=== PATIENT | male | born 1950 | race Caucasian/White ===

== ENCOUNTER 2017-12-02 14:50 | Inpatient (IN) | payer OTHER ==
--- NOTE | 2017-12-02 14:56 | PDOC ---
History of Present Illness - General Chief Complaint: Diarrhea Stated Complaint: DIARRHEA Time Seen by Provider: 12/02/17 14:52 - History of Present Illness Initial Comments: 12/02/17 15:06 Mr. Norman is a 67 yo male w/ pmh of multiple myocardial infarctions ( currently on AC), Rheumatoid arthritis, Radiation proctitis, HTN, HLD, IBS, who presents for evaluation of 6 week history of constipation alternating with diarrhea, epigastric pain, nausea, and gas/abdominal bloating. He reports he has been evaluated by GI (Dr. Jalen Powers) and told he has IBS and proscribed oral fiber for treatment. He presents today as he had a particularly bad episode consisting of these symptoms starting at 2am this morning. The patient denies chest pain, shortness of breath, headache and dizziness. Denies fever, chills, nausea, vomit, diarrhea and constipation. Denies dysuria, frequency, urgency and hematuria. Allergies: Penicillin Past History - Past Medical History Allergies/Adverse Reactions: Allergies Allergy/AdvReac Type Severity Reaction Status Date / Time Penicillins Allergy Intermediate Rash Verified 12/02/17 15:13 Home Medications: Ambulatory Orders No Home Medications 0 dose .ROUTE UTDICT 05/06/13 HTN: Yes - Suicide/Smoking/Psychosocial Hx Smoking Status: Yes Smoking History: Current every day smoker Have you smoked in the past 12 months: Yes Number of Cigarettes Smoked Daily: 20 'Breaking Loose' booklet given: 05/07/13 Hx Alcohol Use: Yes Drug/Substance Use Hx: No Substance Use Type: None Hx Substance Use Treatment: No Review of Systems - Review of Systems Comments:: 12/02/17 15:12 GENERAL/CONSTITUTIONAL: No fever or chills. No weakness. HEAD, EYES, EARS, NOSE AND THROAT: No change in vision. No ear pain or discharge. No sore throat. CARDIOVASCULAR: No chest pain or shortness of breath RESPIRATORY: No cough, wheezing, or hemoptysis. GASTROINTESTINAL: +Nausea with intermittent diarrhea and constipation. No vomiting. GENITOURINARY: No dysuria, frequency, or change in urination. MUSCULOSKELETAL: No joint or muscle swelling or pain. No neck or back pain. SKIN: No rash NEUROLOGIC: No headache, vertigo, loss of consciousness, or change in strength/ sensation. ENDOCRINE: No increased thirst. No abnormal weight change HEMATOLOGIC/LYMPHATIC: No anemia, easy bleeding, or history of blood clots. ALLERGIC/IMMUNOLOGIC: No hives or skin allergy. *Physical Exam - Physical Exam Comments: 12/02/17 15:12 GENERAL: Awake, alert, and fully oriented, in no acute distress HEAD: No signs of trauma, normocephalic, atraumatic EYES: PERRLA, EOMI, sclera anicteric, conjunctiva clear ENT: Auricles normal inspection, hearing grossly normal, nares patent, oropharynx clear without exudates. Moist mucosa NECK: Normal ROM, supple, no lymphadenopathy, JVD, or masses LUNGS: No distress, speaks full sentences, clear to auscultation bilaterally HEART: Regular rate and rhythm, normal S1 and S2, no murmurs, rubs or gallops, peripheral pulses normal and equal bilaterally. ABDOMEN: Soft, nontender, normoactive bowel sounds. No guarding, no rebound. No masses EXTREMITIES: Normal inspection, Normal range of motion, no edema. No clubbing or cyanosis. NEUROLOGICAL: Cranial nerves II through XII grossly intact. Normal speech, normal gait, no focal sensorimotor deficits SKIN: Warm, Dry, normal turgor, no rashes or lesions noted. ED Treatment Course - LABORATORY CBC & Chemistry Diagram: 12/02/17 17:09 12/02/17 17:09 Medical Decision Making - Medical Decision Making 12/02/17 17:00 Mr. Norman is a 67 yo male w/ pmh as described who presents for evaluation of chronic nausea/diarrhea/abdominal pain. Flat/upright xray concerning for SBO. CT abdomen ordered for further evaluation. 12/02/17 18:48 Patient signed out to oncoming team for further care. *DC/Admit/Observation/Transfer Diagnosis at time of Disposition: Abdominal pain Qualifiers: Abdominal location: generalized Qualified Code(s): R10.84 - Generalized abdominal pain Diarrhea Qualifiers: Diarrhea type: unspecified type Qualified Code(s): R19.7 - Diarrhea, unspecified Constipation Qualifiers: Constipation type: unspecified constipation type Qualified Code(s): K59.00 - Constipation, unspecified - Discharge Dispostion Condition at time of disposition: Stable - Referrals - Patient Instructions - Post Discharge Activity
[2017-12-02 15:31] VITALS: BMI 29.6
[2017-12-02] MEDS ORDERED: MAG HYDROX/AL HYDROX/SIMETH 30 ML UNIT-DOSE CUP PO ONE (15:38)
[2017-12-02] MEDS ORDERED: SODIUM CHLORIDE 1,000 ML IV STA (15:38)
[2017-12-02] MEDS ORDERED: ACETAMINOPHEN 1000 MG/100 ML VIAL (NON FORMULARY) IVPB ONE (15:38)
[2017-12-02] MEDS ORDERED: ONDANSETRON 4 MG/2 ML VIAL IVPB ONE ×2 (15:38→16:01)
--- NOTE | 2017-12-02 15:38 | PDOC ---
Attending Attestation - Resident Resident Name: Valdez Weber - ED Attending Attestation I have performed the following: I have examined & evaluated the patient, The case was reviewed & discussed with the resident, I agree w/resident's findings & plan, Exceptions are as noted - HPI HPI: 12/02/17 15:41 The patient is a 67 year old male with a significant PMH of hypertension, hyperlipidemia, CAD/[place], rheumatoid arthritis, IBS and radiation proctitis who presents to the emergency department with intermittent abdominal bloating, diarrhea and constipation for 6 weeks. The patient reports that he went to a GI doctor recently and was diagnosed with IBS. He was started on a fiber supplement that has not helped. This morning, pt states his abdominal bloating and pain got much worse, and he has been having diarrhea since. The patient reports that he has experienced associated nausea, bloating and belching. The patient denies any chest pain, shortness of breath, headache or dizziness. He denies fever, chills, vomiting or urinary symptoms. The patient denies any other complaints. Denies prior surgical history. - Physicial Exam PE: 12/02/17 15:45 "GENERAL: Awake, alert, and fully oriented, in no acute distress. HEAD: No signs of trauma EYES: PERRLA, EOMI, sclera anicteric, conjunctiva clear ENT: Auricles normal inspection, hearing grossly normal, nares patent, oropharynx clear without exudates. Moist mucosa NECK: Nontender, no stepoffs, Normal ROM, supple, no lymphadenopathy, JVD, or masses LUNGS: Breath sounds equal, clear to auscultation bilaterally. No wheezes, and no crackles HEART: Regular rate and rhythm, normal S1 and S2, no murmurs, rubs or gallops ABDOMEN: + distention with mild epigastric tenderness. No guarding, no rebound. No masses EXTREMITIES: Normal range of motion, no edema. No clubbing or cyanosis. No cords, erythema, or tenderness NEUROLOGICAL: Cranial nerves II through XII intact. 5/5 strength and sensation in all extremities, Normal speech, normal gait, normal cerebellar function SKIN: Warm, Dry, normal turgor, no rashes or lesions noted. " - Medical Decision Making 12/02/17 15:36 67 M with 6 weeks of intermittent abdominal bloating, diarrhea, and constipation. Likely IBS as diagnosed by his GI doctor. Pt today with acute worsening of bloating and diarrhea but relatively benign abdomen. Exam notable for distention and tympany. No prior surgical history but will r/o SBO. - Labs - Upright abdominal XR to r/o obstruction - CT if indicated - IVF, GI cocktail XR shows likely obstruction. Pt signed out to oncoming attending at 7pm, pending CT, possible surgical eval, and admission.
[2017-12-02] MEDS ORDERED: ACETAMINOPHEN 500 MG TABLET (FP) PO ONE (16:01)
[2017-12-02] MEDS ORDERED: ONDANSETRON 4 MG TABLET PO ONE ×2 (16:22→16:34)
[2017-12-02] MEDS ORDERED: MAG HYDROX/AL HYDROX/SIMETH 30 ML UNIT-DOSE CUP ONE (16:34)
[2017-12-02] MEDS ORDERED: ACETAMINOPHEN 500 MG TABLET (FP) ONE (16:34)
[2017-12-02 17:14] LABS: HEMOGLOBIN 19.5 GM/dl (11.7-16.9)
[2017-12-02 17:20] LABS: BASO % 1.5 % (0-2.0); EOS % 0.8 % (0-4.5); HEMATOCRIT 56.5 % (35.4-49); LYMPH % 12.2 % (8-40); MCH 32.5 pg (25.7-33.7); MCHC 34.6 g/dl (32.0-35.9); MEAN CELL VOLUME 93.9 fl (80-96); MONO % 5.1 % (3.8-10.2); NEUT % 80.4 % (42.8-82.8); PLATELET COUNT 321 K/MM3 (134-434); RBC 6.02 M/mm3 (4.00-5.60); RDW 12.5 % (11.9-15.9); WHITE BLOOD COUNT 13.7 K/mm3 (4.0-10.8)
[2017-12-02 17:33] LABS: ALK PHOS 78 U/L (32-92); ANION GAP 9 (8-16); BILIRUBIN,TOTAL 0.7 mg/dl (0.2-1.0); BLOOD UREA NITROGEN 23 mg/dl (7-18); CALCIUM 10.4 mg/dl (8.4-10.2); CHLORIDE 106 mmol/L (98-107); CO2 23 mmol/L (22-28); CREATININE 1.3 mg/dl (0.6-1.3); GLUCOSE,RANDOM 123 mg/dl (74-106); POTASSIUM 4.7 mmol/L (3.5-5.1); SGOT/AST 16 U/L (10-42); SGPT/ALT 28 U/L (10-40); SODIUM 138 mmol/L (136-145); TOT PROT 8.5 g/dl (6.4-8.3)
--- NOTE | 2017-12-02 20:38 | PDOC ---
*Physical Exam - Vital Signs Last Vital Signs Temp Pulse Resp BP Pulse Ox 98.3 F 58 L 20 126/82 98 12/02/17 19:28 12/02/17 19:28 12/02/17 19:28 12/02/17 19:28 12/02/17 19:28 ED Treatment Course - LABORATORY CBC & Chemistry Diagram: 12/02/17 17:09 12/02/17 17:09 - ADDITIONAL ORDERS Additional order review: Laboratory Results 12/02/17 12/02/17 17:09 16:20 Sodium 138 Cancelled Potassium 4.7 Cancelled Chloride 106 Cancelled Carbon Dioxide 23 Cancelled Anion Gap 9 Cancelled BUN 23 H Cancelled Creatinine 1.3 D Cancelled Creat Clearance w eGFR 55.40 Cancelled Random Glucose 123 H D Cancelled Calcium 10.4 H Cancelled Total Bilirubin 0.7 D Cancelled AST 16 Cancelled ALT 28 Cancelled Alkaline Phosphatase 78 D Cancelled Total Protein 8.5 H Cancelled Albumin 5.0 D Cancelled Lipase Cancelled 12/02/17 12/02/17 17:09 16:20 RBC 6.02 H Cancelled MCV 93.9 Cancelled MCHC 34.6 Cancelled RDW 12.5 Cancelled MPV 9.0 Cancelled Neutrophils % 80.4 D Cancelled Lymphocytes % 12.2 D Cancelled Monocytes % 5.1 Cancelled Eosinophils % 0.8 Cancelled Basophils % 1.5 Cancelled - Medications Given in the ED: ED Medications Discontinued Medications Generic Name Dose Route Start Last Admin Trade Name Chrisq PRN Reason Stop Dose Admin Acetaminophen 1,000 mg 12/02/17 15:38 12/02/17 17:16 Ofirmev Injection - IVPB 12/02/17 15:39 Not Given ONCE ONE Acetaminophen 1,000 mg 12/02/17 16:01 12/02/17 16:38 Tylenol - PO 12/02/17 16:02 1,000 mg ONCE ONE Administration Al Hydroxide/Mg Hydroxide 30 ml 12/02/17 15:38 12/02/17 16:38 Mylanta Oral Suspension - PO 12/02/17 15:39 30 ml ONCE ONE Administration Sodium Chloride 1,000 mls @ 1,000 mls/hr 12/02/17 15:38 12/02/17 17:16 Normal Saline - IV 12/02/17 16:37 Not Given ASDIR STA Ondansetron HCl 4 mg 12/02/17 15:38 12/02/17 17:16 Zofran Injection IVPB 12/02/17 15:39 Not Given ONCE ONE Ondansetron HCl 4 mg 12/02/17 16:01 12/02/17 17:17 Zofran Injection IVPB 12/02/17 16:02 Not Given ONCE ONE Ondansetron HCl 4 mg 12/02/17 16:22 12/02/17 16:39 Zofran - PO 12/02/17 16:23 4 mg ONCE ONE Administration Medical Decision Making - Medical Decision Making 12/02/17 20:35 Care of this patient received from CT of abdomen and pelvis interpreted by Dr. Mora of the radiology staff: Ileus versus low-grade small partial small bowel obstruction without discrete transition point identified.. There is apparent segmental small bowel wall thickening in the right lower quadrant which is thought to be enteritis versus under distention his relative mucosal hyperintense enhancement along the sigmoid colon and rectum (mild infectious versus inflammatory proctocolitis) Results discussed with the patient. Patient describes feculent belching over the last day along with persistent diarrhea. Although no discrete transition point as noted, patient has a history of radiation for prostate carcinoma, and is at risk for obstruction. Patient needs to be kept NPO and admitted for further evaluation. Case discussed with CLARI West and patient admitted , Dr. Coker *DC/Admit/Observation/Transfer Diagnosis at time of Disposition: Partial small bowel obstruction - Discharge Dispostion Condition at time of disposition: Stable Decision to Admit order: Yes - Referrals - Patient Instructions - Post Discharge Activity
[2017-12-02] MEDS ORDERED: ONDANSETRON 4 MG/2 ML VIAL IVPUSH PRN (22:22)
--- NOTE | 2017-12-02 22:22 | HP ---
CHIEF COMPLAINT: abdominal pain, diarrhea PCP: Misha HISTORY OF PRESENT ILLNESS: This is a 67 year old male with a significant past medical history of ND, HTN, CHF, RA, IBS, radiation proctitis who presented to the ED with constipation alternating with diarrhea, epigastric pain, nausea, abdominal bloating x 6 weeks ; he has been followed by his GI for same. He reported to the ED because the pain has become much more severe since 2am with loose BM. He also reports belching foul smelling gas. His GI doctor recently increased his fiber to 2T BID which he states he takes 1T QID. ER course was notable for: (1) WBC 13.7 (2) CT scan with ileus vs partial SBO (3) Recent Travel: pt denies PAST MEDICAL HISTORY: ND, HTN, HLD, CHF, RA, IBS, radiation proctitis, Prostate CA, colon adenoma removal 2015 PAST SURGICAL HISTORY: pt denies Social History: Smoking: quit 4 y ago, previous 1.5-2ppd x 30 years Alcohol: rarely Drugs: pt denies Family History: mother age 92 father age 69, heart, first ND late 50s brother age 57, Down syndrome brother decased age 58, OD brother alive with angina sister with osteoporosis, colitis Allergies Penicillins Allergy (Intermediate, Verified 12/02/17 15:13) Rash HOME MEDICATIONS: 3 Medication Instructions Recorded Alprazolam 0.5 mg PO TID 12/02/17 Aspirin 81 mg PO DAILY 12/02/17 Atorvastatin Ca [Lipitor] 40 mg PO HS 12/02/17 Bismuth Subsalicylate 2 tab PO PRN 12/02/17 [Pepto-Bismol -] metoprolol 50 mg PO BID 12/02/17 Clopidogrel Bisulfate [Clopidogrel] 75 mg PO DAILY 12/02/17 Famotidine [Pepcid -] 40 mg PO HS 12/02/17 Lisinopril [Prinivil -] 40 mg PO DAILY 12/02/17 Nitroglycerin 0.4 mg SL PRN 12/02/17 Omeprazole 40 mg PO HS 12/02/17 Prednisone 5 mg PO DAILY 12/02/17 Ranolazine [Ranexa] 1,000 mg PO Q12H 12/02/17 REVIEW OF SYSTEMS CONSTITUTIONAL: Absent: fever, chills, diaphoresis, generalized weakness, malaise, loss of appetite, weight change HEENT: Absent: rhinorrhea, nasal congestion, throat pain, throat swelling, difficulty swallowing, mouth swelling, ear pain, eye pain, visual changes CARDIOVASCULAR: Absent: chest pain, syncope, palpitations, irregular heart rate, lightheadedness , peripheral edema RESPIRATORY: Absent: cough, shortness of breath, dyspnea with exertion, orthopnea, wheezing, stridor, hemoptysis GASTROINTESTINAL: Present: abdominal pain, abdominal distension, nausea, diarrhea, constipation Absent: vomiting, melena, hematochezia GENITOURINARY: Absent: dysuria, frequency, urgency, hesitancy, hematuria, flank pain, genital pain MUSCULOSKELETAL: Absent: myalgia, arthralgia, joint swelling, back pain, neck pain SKIN: Absent: rash, itching, pallor HEMATOLOGIC/IMMUNOLOGIC: Absent: easy bleeding, easy bruising, lymphadenopathy, frequent infections ENDOCRINE: Absent: unexplained weight gain, unexplained weight loss, heat intolerance, cold intolerance NEUROLOGIC: Absent: headache, focal weakness or paresthesias, dizziness, unsteady gait, seizure, mental status changes, bladder or bowel incontinence PSYCHIATRIC: Absent: anxiety, depression, suicidal or homicidal ideation, hallucinations. PHYSICAL EXAMINATION Vital Signs - 24 hr 3 12/02/17 12/02/17 14:51 19:28 Temperature 97.4 F L 98.3 F Pulse Rate 60 Pulse Rate [ 58 L Left Radial] Respiratory 18 20 Rate Blood Pressure 115/68 Blood Pressure 126/82 [Right] O2 Sat by Pulse 99 98 Oximetry (%) GENERAL: Awake, alert, and fully oriented, in no acute distress. HEAD: Normal with no signs of trauma. EYES: Pupils equal, round and reactive to light, extraocular movements intact, sclera anicteric, conjunctiva clear. No lid lag. EARS, NOSE, THROAT: Ears normal, nares patent, oropharynx clear without exudates. Moist mucous membranes. NECK: Normal range of motion, supple without lymphadenopathy, JVD, or masses. LUNGS: Breath sounds equal, clear to auscultation bilaterally. No wheezes, and no crackles. No accessory muscle use. HEART: Regular rate and rhythm, normal S1 and S2 without murmur, rub or gallop. ABDOMEN: Soft, tender epigastric area, softly distended, hypertympanic, normoactive bowel sounds, no guarding, no rebound, no masses. No hepatomegaly or splenomegaly. MUSCULOSKELETAL: Normal range of motion at all joints. No bony deformities or tenderness. No CVA tenderness. UPPER EXTREMITIES: 2+ pulses, warm, well-perfused. No cyanosis. No clubbing. No peripheral edema. LOWER EXTREMITIES: 2+ pulses, warm, well-perfused. No calf tenderness. No peripheral edema. NEUROLOGICAL: Cranial nerves II-XII intact. Normal speech. Normal gait. PSYCHIATRIC: Cooperative. Good eye contact. Appropriate mood and affect. SKIN: Warm, dry, normal turgor, no rashes or lesions noted, normal capillary refill. Laboratory Results - last 24 hr 3 12/02/17 12/02/17 12/02/17 16:20 16:20 17:09 WBC Cancelled 13.7 H Corrected WBC (auto) Cancelled RBC Cancelled 6.02 H Hgb Cancelled 19.5 H D Hct Cancelled 56.5 H D MCV Cancelled 93.9 MCH Cancelled 32.5 MCHC Cancelled 34.6 RDW Cancelled 12.5 Plt Count Cancelled 321 MPV Cancelled 9.0 Absolute Neuts (auto) Cancelled Absolute Lymphs (auto) Cancelled Absolute Monos (auto) Cancelled Absolute Eos (auto) Cancelled Absolute Basos (auto) Cancelled Add Manual Diff Cancelled Neutrophils % Cancelled 80.4 D Lymphocytes % Cancelled 12.2 D Monocytes % Cancelled 5.1 Eosinophils % Cancelled 0.8 Basophils % Cancelled 1.5 Nucleated RBC % Cancelled Platelet Estimate Cancelled Platelet Comment Cancelled Normal RBC Morphology Cancelled Sodium Cancelled Potassium Cancelled Chloride Cancelled Carbon Dioxide Cancelled Anion Gap Cancelled BUN Cancelled Creatinine Cancelled Creat Clearance w eGFR Cancelled Random Glucose Cancelled Calcium Cancelled Total Bilirubin Cancelled AST Cancelled ALT Cancelled Alkaline Phosphatase Cancelled Total Protein Cancelled Albumin Cancelled Lipase Cancelled 3 12/02/17 17:09 WBC Corrected WBC (auto) RBC Hgb Hct MCV MCH MCHC RDW Plt Count MPV Absolute Neuts (auto) Absolute Lymphs (auto) Absolute Monos (auto) Absolute Eos (auto) Absolute Basos (auto) Add Manual Diff Neutrophils % Lymphocytes % Monocytes % Eosinophils % Basophils % Nucleated RBC % Platelet Estimate Platelet Comment Normal RBC Morphology Sodium 138 Potassium 4.7 Chloride 106 Carbon Dioxide 23 Anion Gap 9 BUN 23 H Creatinine 1.3 D Creat Clearance w eGFR 55.40 Random Glucose 123 H D Calcium 10.4 H Total Bilirubin 0.7 D AST 16 ALT 28 Alkaline Phosphatase 78 D Total Protein 8.5 H Albumin 5.0 D Lipase ECG normal sinus rhythm vent rate 60, QTC 392 inferior infarct, age undetermined no acute ST/T changes Radiology Reports Abominal xray Impression: Small bowel or high-grade partial small bowel obstruction. CT suggested. Reported By: Eric Holden MD 12/02/[address] abd/pelvis with contrast Impression: 1. Ileus versus low-grade partial small bowel obstruction as described above. No discrete transition point identified. A follow-up radiograph of the abdomen may be obtained to confirm progression of enteric contrast into the colon. 2. Apparent segmental small bowel wall thickening in the right lower quadrant be attributed to an enteritis versus underdistention. 3. Relative mucosal hyperenhancement along the sigmoid colon and rectum is nonspecific, but raises the possibility of a mild infectious versus inflammatory proctocolitis. Fluid throughout the colon suggests diarrhea illness. 4. Since 09/30/2016, a new 6 mm pleural-based nodular opacity in the left lung base and a stable 5 mm right middle lobe pulmonary nodule. Reported By: Kierra Mora DO 12/02/172026 ASSESSMENT/PLAN: 67yM with PMH ND, HTN, HLD, CHF, RA, IBS, radiation proctitis, Prostate CA, colon adenoma removal 2015 presented to the ED with epigastric pain and LBM since 2am. partial SBO - NPO - NS @ 100cc/hr - surgical consult leukocytosis - monitor off antibiotics, pt afebrile HTN, CAD, HLD, CHF - cont home meds RA - cont prednisone GERD - home pepcid changed to formulary ranitidine - home omeprazole changed to formulary pantoprazole anxiety - pt reports he takes his xanax 2 tabs HS only, not TID as documented DVT PPX - heparin TID FEN - NS @ 100cc/hr - BMP in am - NPO for now Dispo: Pt currently requires inpatient management of his emergent condition. Visit type - Emergency Visit Emergency Visit: Yes ED Registration Date: 12/02/17 Care time: The patient presented to the Emergency Department on the above date and was hospitalized for further evaluation of their emergent condition. - New Patient This patient is new to me today: Yes Date on this admission: 12/02/17 - Critical Care Critical Care patient: No Hospitalist Screening - Colonoscopy Questionnaire Colonoscopy Questionnaire: Colonoscopy Questionnaire - Patient: 50 - 75 years old and never had a screening colonoscopy: No History of colon or rectal polyps, or CA: Yes History of IBD, Crohn's disease or UC: No History of abdominal radiation therapy as a child: No - Relative: 1 with colon or rectal CA, or polyps at age 60 or younger: No Colon or rectal CA diagnosed at age 45 or younger: No Multiple relatives with colon or rectal CA: No - Outcome: Screening Result: Positive Screen
[2017-12-02] MEDS ORDERED: SODIUM CHLORIDE 1,000 ML IV SCH (22:30)
[2017-12-03] MEDS ORDERED: ALPRAZolam 0.25 MG TABLET ONE (00:30)
[2017-12-03 03:01] LABS: LIPASE 140 U/L (73-393)
[2017-12-03 08:32] LABS: BASO % 0.8 % (0-2.0); EOS % 2.3 % (0-4.5); HEMOGLOBIN 16.2 GM/dl (11.7-16.9); LYMPH % 25.1 % (8-40); MCH 32.7 pg (25.7-33.7); MCHC 34.5 g/dl (32.0-35.9); MEAN CELL VOLUME 94.9 fl (80-96); MEAN PLT VOLUME 8.7 fl (7.5-11.1); MONO % 8.1 % (3.8-10.2); NEUT % 63.7 % (42.8-82.8); PLATELET COUNT 265 K/MM3 (134-434); RBC 4.96 M/mm3 (4.00-5.60); RDW 12.4 % (11.9-15.9); WHITE BLOOD COUNT 9.7 K/mm3 (4.0-10.8)
--- NOTE | 2017-12-03 09:04 | CONSULT ---
Consult Consult Specialty:: general surgery Referred by:: Vahe Reason for Consultation:: SBO vs ileus - History of Present Illness Chief Complaint: diarrhea and abdominal pain History of Present Illness: 67 yo male PMH CAD, [place], HTN, CHF, RA, IBS, Prostate cancer with pelvic EBR, radiation proctitis who presented to the ED with constipation alternating with diarrhea, epigastric pain, nausea, abdominal bloating x 6 weeks; he has been followed by his GI for same, treated for a "stomach infection". He reported to the ED because the pain has become much more severe since 2am with loose BM. He also reports belching foul smelling gas. His GI doctor recently increased his fiber to 2T BID which he states he takes 1T QID. Abdominal pain is primarily epigastric. He is passing flat and has had multiple episodes of loose stool, he denied any blood per rectum. No previous abdominal surgery. we were asked to assess. - History Source History Provided By: Patient, Medical Record Limitations to Obtaining History: No Limitations - Past Medical History Cardio/Vascular: Yes: CAD, HTN, NM Gastrointestinal: Yes: Constipation, Irritable Bowel Disease Renal/: Yes: Other (Prostate Cancer) - Alcohol/Substance Use Hx Alcohol Use: Yes - Smoking History Smoking history: Former smoker Have you smoked in the past 12 months: No Aproximately how many cigarettes per day: 20 - Social History ADL: Independent Place of : [facility] History of Recent Travel: No Home Medications - Allergies Allergies/Adverse Reactions: Allergies Allergy/AdvReac Type Severity Reaction Status Date / Time Penicillins Allergy Intermediate Rash Verified 12/02/17 15:13 - Home Medications Home Medications: Ambulatory Orders Alprazolam 0.5 mg PO TID 12/02/17 Aspirin 81 mg PO DAILY 12/02/17 Atorvastatin Ca [Lipitor] 40 mg PO HS 12/02/17 Bismuth Subsalicylate [Pepto-Bismol -] 2 tab PO PRN 12/02/17 Carvedilol 6.25 mg PO DAILY 12/02/17 Clopidogrel Bisulfate [Clopidogrel] 75 mg PO DAILY 12/02/17 Famotidine [Pepcid -] 40 mg PO DAILY 12/02/17 Lisinopril [Prinivil -] 40 mg PO DAILY 12/02/17 Nitroglycerin 0.4 mg SL PRN 12/02/17 Omeprazole 40 mg PO BID 12/02/17 Prednisone 5 mg PO DAILY 12/02/17 Ranolazine [Ranexa] 1,000 mg PO Q12H 12/02/17 Review of Systems - Review of Systems Constitutional: denies: Chills, Fever HENT: denies: Difficult Swallowing, Throat Pain Neck: denies: Decreased ROM, Pain on Movement, Swollen Glands Cardiovascular: denies: Chest Pain, Palpitations Respiratory: denies: Cough, SOB Gastrointestinal: reports: Abdominal Pain, Constipation, Diarrhea, Indigestion Genitourinary: denies: Burning, Discharge Breasts: reports: No Symptoms Reported. denies: Pain Musculoskeletal: denies: Muscle Pain, Muscle Weakness Neurological: denies: Seizure, Syncope Endocrine: denies: Unexplained Weight Gain, Unexplained Weight Loss Hematology/Lymphatic: denies: Easily Bruised, Excessive Bleeding Psychiatric: denies: Anxiety, Depression Physical Exam Vital Signs: Vital Signs Temperature 97.5 F L 12/03/17 06:27 Pulse Rate 55 L 12/03/17 06:27 Respiratory Rate 14 12/03/17 06:27 Blood Pressure 123/80 12/03/17 06:27 O2 Sat by Pulse Oximetry (%) 98 12/03/17 08:33 Vital Signs Period Temp Pulse Resp BP Sys/Balbuena Pulse Ox Last 24 Hr 97.1 F-98.3 F 50-60 14-20 109-126/58-82 96-99 Constitutional: Yes: No Distress, Calm, Obese Eyes: Yes: Conjunctiva Clear, EOM Intact HENT: Yes: Atraumatic, Normocephalic Neck: Yes: Supple, Trachea Midline Cardiovascular: Yes: Regular Rate and Rhythm, S1, S2 Respiratory: Yes: Regular, CTA Bilaterally Gastrointestinal: Yes: Soft, Abdomen, Obese, Hypoactive Bowel Sounds, Tenderness , Epigastrium (mild discomfort mid epigastrium). No: Ascites, Distention, Hernia, Tenderness (-murphys sign), Tenderness, Rebound ...Rectal Exam: No: Deferred Renal/: No: CVA Tenderness - Left, CVA Tenderness - Right Musculoskeletal: No: Muscle Pain, Muscle Weakness Extremities: No: Cool, Cyanosis Edema: No Peripheral Pulses WNL: Yes Integumentary: No: Jaundice, Rash Neurological: Yes: Alert, Oriented Psychiatric: Yes: Alert, Oriented Labs: CBC, BMP 12/03/17 08:24 CBC,CMP WBC 9.7 K/mm3 (4.0-10.8) 12/03/17 08:24 Corrected WBC (auto) Cancelled 12/02/17 16:20 RBC 4.96 M/mm3 (4.00-5.60) 12/03/17 08:24 Hgb 16.2 GM/dl (11.7-16.9) D 12/03/17 08:24 Hct 47.0 % (35.4-49) D 12/03/17 08:24 MCV 94.9 fl (80-96) 12/03/17 08:24 MCH 32.7 pg (25.7-33.7) 12/03/17 08:24 MCHC 34.5 g/dl (32.0-35.9) 12/03/17 08:24 RDW 12.4 % (11.9-15.9) 12/03/17 08:24 Plt Count 265 K/MM3 (134-434) 12/03/17 08:24 MPV 8.7 fl (7.5-11.1) 12/03/17 08:24 Absolute Neuts (auto) Cancelled 12/02/17 16:20 Absolute Lymphs (auto) Cancelled 12/02/17 16:20 Absolute Monos (auto) Cancelled 12/02/17 16:20 Absolute Eos (auto) Cancelled 12/02/17 16:20 Absolute Basos (auto) Cancelled 12/02/17 16:20 Add Manual Diff Cancelled 12/02/17 16:20 Neutrophils % 63.7 % (42.8-82.8) D 12/03/17 08:24 Lymphocytes % 25.1 % (8-40) D 12/03/17 08:24 Monocytes % 8.1 % (3.8-10.2) 12/03/17 08:24 Eosinophils % 2.3 % (0-4.5) D 12/03/17 08:24 Basophils % 0.8 % (0-2.0) 12/03/17 08:24 Nucleated RBC % Cancelled 12/02/17 16:20 Platelet Estimate Cancelled 12/02/17 16:20 Platelet Comment Cancelled 12/02/17 16:20 Normal RBC Morphology Cancelled 12/02/17 16:20 Sodium 137 mmol/L (136-145) 12/03/17 08:27 Potassium 4.7 mmol/L (3.5-5.1) 12/03/17 08:27 Chloride 106 mmol/L (98-107) 12/03/17 08:27 Carbon Dioxide 26 mmol/L (22-28) 12/03/17 08:27 Anion Gap 5 (8-16) L 12/03/17 08:27 BUN 23 mg/dl (7-18) H 12/03/17 08:27 Creatinine 1.2 mg/dl (0.6-1.3) 12/03/17 08:27 Creat Clearance w eGFR 55.40 (>60) 12/02/17 17:09 Random Glucose 89 mg/dl (74-106) D 12/03/17 08:27 Calcium 9.1 mg/dl (8.4-10.2) 12/03/17 08:27 Phosphorus 4.1 mg/dl (2.5-4.6) 12/03/17 08:27 Magnesium 2.0 mg/dL (1.8-2.4) 12/03/17 08:27 Total Bilirubin 0.7 mg/dl (0.2-1.0) D 12/02/17 17:09 AST 16 U/L (10-42) 12/02/17 17:09 ALT 28 U/L (10-40) 12/02/17 17:09 Alkaline Phosphatase 78 U/L (32-92) D 12/02/17 17:09 Total Protein 8.5 g/dl (6.4-8.3) H 12/02/17 17:09 Albumin 5.0 g/dl (3.5-5.0) D 12/02/17 17:09 Lipase 140 U/L (73-393) 12/02/17 17:09 Imaging - Results X-ray: Report Reviewed, Image Reviewed (contranst progressing through intestines ) Cat Scan: Report Reviewed (partial SBO pattern, segmental colonic wall thickening), Image Reviewed Problem List - Problems (1) Radiation enterocolitis Assessment/Plan: 67 yo male MMP likley radiation related enterocolitis/ IBS this is not a bowel obstruction. he does not require emergency surgical interention. Advance diet as tolerated GI evaluation for bowel regimen Fiber Colace Dietary modification Abdominal xray to track the progress of contrast Code(s): K52.0 - GASTROENTERITIS AND COLITIS DUE TO RADIATION (2) Partial small bowel obstruction Code(s): K56.600 - PARTIAL INTESTINAL OBSTRUCTION, UNSPECIFIED TO CAUSE (3) History of IBS Code(s): Z87.19 - PERSONAL HISTORY OF OTHER DISEASES OF THE DIGESTIVE SYSTEM (4) CAD (coronary artery disease) Code(s): I25.10 - ATHSCL HEART DISEASE OF [place] CORONARY ARTERY W/O ANG PCTRS (5) HTN (hypertension) Code(s): I10 - ESSENTIAL (PRIMARY) HYPERTENSION
[2017-12-03 09:19] LABS: ANION GAP 5 (8-16); BLOOD UREA NITROGEN 23 mg/dl (7-18); CALCIUM 9.1 mg/dl (8.4-10.2); CHLORIDE 106 mmol/L (98-107); CO2 26 mmol/L (22-28); CREATININE 1.2 mg/dl (0.6-1.3); GLUCOSE,RANDOM 89 mg/dl (74-106); PHOSPHOROUS 4.1 mg/dl (2.5-4.6); POTASSIUM 4.7 mmol/L (3.5-5.1); SODIUM 137 mmol/L (136-145)
[2017-12-03] MEDS: CLOPIDOGREL BISULFATE 75 MG TABLET (FP) PO SCH (09:36)
[2017-12-03] MEDS: LISINOPRIL 20 MG TABLET (FP) PO SCH (09:36)
[2017-12-03] MEDS: predniSONE 5 MG TABLET (UD) PO SCH (09:36)
[2017-12-03] MEDS: ASPIRIN 81 MG CHEWABLE TABLETS PO SCH (09:36)
[2017-12-03] MEDS: RANOLAZINE E.R. 500 MG TABLET (FP) PO SCH ×3 (09:36→22:40)
[2017-12-03] MEDS: PANTOPRAZOLE 40 MG TABLET (FP) PO SCH ×3 (09:36→22:40)
--- NOTE | 2017-12-03 12:10 | PN ---
Physical Exam: SUBJECTIVE: Patient seen and examined, patient report flatus, denies any abdominal pain or nausea. OBJECTIVE: Patient is a 67 year old male with a significant past medical history of [place], HTN, CHF, RA, IBS, radiation proctitis. Patient was admitted from the emergency department for partial SBO. Vital Signs Period Temp Pulse Resp BP Sys/Balbuena Pulse Ox Last 24 Hr 97.1 F-98.3 F 50-60 14-20 109-126/58-82 96-99 GENERAL: The patient is awake, alert, and fully oriented, in no acute distress. HEAD: Normal with no signs of trauma. EYES: PERRL, extraocular movements intact, sclera anicteric, conjunctiva clear. No ptosis. ENT: Ears normal, nares patent, oropharynx clear without exudates, moist mucous membranes. NECK: Trachea midline, full range of motion, supple. LUNGS: Breath sounds equal, clear to auscultation bilaterally, no wheezes, no crackles, no accessory muscle use. HEART: Regular rate and rhythm, S1, S2 without murmur, rub or gallop. ABDOMEN: Soft, hypoactive bowel sounds, nontender, nondistended, no guarding, no rebound, no hepatosplenomegaly, no masses. EXTREMITIES: 2+ pulses, warm, well-perfused, no edema. NEUROLOGICAL: Cranial nerves II through XII grossly intact. Normal speech, gait not observed. PSYCH: Normal mood, normal affect. SKIN: Warm, dry, normal turgor, no rashes or lesions noted Laboratory Results - last 24 hr 12/02/17 12/02/17 12/02/17 16:20 16:20 17:09 WBC Cancelled 13.7 H Corrected WBC (auto) Cancelled RBC Cancelled 6.02 H Hgb Cancelled 19.5 H D Hct Cancelled 56.5 H D MCV Cancelled 93.9 MCH Cancelled 32.5 MCHC Cancelled 34.6 RDW Cancelled 12.5 Plt Count Cancelled 321 MPV Cancelled 9.0 Absolute Neuts (auto) Cancelled Absolute Lymphs (auto) Cancelled Absolute Monos (auto) Cancelled Absolute Eos (auto) Cancelled Absolute Basos (auto) Cancelled Add Manual Diff Cancelled Neutrophils % Cancelled 80.4 D Lymphocytes % Cancelled 12.2 D Monocytes % Cancelled 5.1 Eosinophils % Cancelled 0.8 Basophils % Cancelled 1.5 Nucleated RBC % Cancelled Platelet Estimate Cancelled Platelet Comment Cancelled Normal RBC Morphology Cancelled Sodium Cancelled Potassium Cancelled Chloride Cancelled Carbon Dioxide Cancelled Anion Gap Cancelled BUN Cancelled Creatinine Cancelled Creat Clearance w eGFR Cancelled Random Glucose Cancelled Calcium Cancelled Phosphorus Magnesium Total Bilirubin Cancelled AST Cancelled ALT Cancelled Alkaline Phosphatase Cancelled Total Protein Cancelled Albumin Cancelled Lipase Cancelled 12/02/17 12/03/17 12/03/17 17:09 08:24 08:27 WBC 9.7 Corrected WBC (auto) RBC 4.96 Hgb 16.2 D Hct 47.0 D MCV 94.9 MCH 32.7 MCHC 34.5 RDW 12.4 Plt Count 265 MPV 8.7 Absolute Neuts (auto) Absolute Lymphs (auto) Absolute Monos (auto) Absolute Eos (auto) Absolute Basos (auto) Add Manual Diff Neutrophils % 63.7 D Lymphocytes % 25.1 D Monocytes % 8.1 Eosinophils % 2.3 D Basophils % 0.8 Nucleated RBC % Platelet Estimate Platelet Comment Normal RBC Morphology Sodium 138 137 Potassium 4.7 4.7 Chloride 106 106 Carbon Dioxide 23 26 Anion Gap 9 5 L BUN 23 H 23 H Creatinine 1.3 D 1.2 Creat Clearance w eGFR 55.40 Random Glucose 123 H D 89 D Calcium 10.4 H 9.1 Phosphorus 4.1 Magnesium 2.0 Total Bilirubin 0.7 D AST 16 ALT 28 Alkaline Phosphatase 78 D Total Protein 8.5 H Albumin 5.0 D Lipase 140 Active Medications Generic Name Dose Route Start Last Admin Trade Name Freq PRN Reason Stop Dose Admin Alprazolam 1 mg 12/02/17 23:45 12/03/17 00:00 Xanax - PO 1 mg HS ALPHONSE Administration Aspirin 81 mg 12/03/17 10:00 12/03/17 09:36 Asa - PO 81 mg DAILY ALPHONSE Administration Atorvastatin Calcium 40 mg 12/03/17 22:00 Lipitor - PO HS ALPHONSE Clopidogrel Bisulfate 75 mg 12/03/17 10:00 12/03/17 09:36 Plavix - PO 75 mg DAILY ALPHONSE Administration Heparin Sodium (Porcine) 5,000 unit 12/03/17 06:00 Heparin - SQ TID ALPHONSE Sodium Chloride 1,000 mls @ 100 mls/hr 12/02/17 22:30 12/02/17 22:53 Normal Saline - IV 100 mls/hr ASDIR ALPHONSE Administration Lisinopril 40 mg 12/03/17 10:00 12/03/17 09:36 Prinivil PO 40 mg DAILY ALPHONSE Administration Ondansetron HCl 4 mg 12/02/17 22:22 Zofran Injection IVPUSH Q6H PRN NAUSEA Pantoprazole Sodium 40 mg 12/02/17 23:45 12/03/17 09:36 Protonix - PO 40 mg BID ALPHONSE Administration Prednisone 5 mg 12/03/17 10:00 12/03/17 09:36 Deltasone - PO 5 mg DAILY ALPHONSE Administration Ranitidine HCl 300 mg 12/02/17 23:45 12/03/17 00:00 Zantac - PO 300 mg HS ALPHONSE Administration Ranolazine 500 mg 12/02/17 23:45 12/03/17 09:36 Ranexa - PO 500 mg BID ALPHONSE Administration IMAGING ECG normal sinus rhythm vent rate 60, QTC 392 inferior infarct, age undetermined no acute ST/T changes Radiology Reports Abominal xray Impression: Small bowel or high-grade partial small bowel obstruction. CT suggested. Reported By: Eric Holden MD 12/02/[address] abd/pelvis with contrast Impression: 1. Ileus versus low-grade partial small bowel obstruction as described above. No discrete transition point identified. A follow-up radiograph of the abdomen may be obtained to confirm progression of enteric contrast into the colon. 2. Apparent segmental small bowel wall thickening in the right lower quadrant be attributed to an enteritis versus underdistention. 3. Relative mucosal hyperenhancement along the sigmoid colon and rectum is nonspecific, but raises the possibility of a mild infectious versus inflammatory proctocolitis. Fluid throughout the colon suggests diarrhea illness. 4. Since 09/30/2016, a new 6 mm pleural-based nodular opacity in the left lung base and a stable 5 mm right middle lobe pulmonary nodule. Reported By: Kierra Mora DO 12/02/172026 ASSESSMENT/PLAN: 1) GI partial SBO - resolved, post likely radiation enterocolitis vs ibs, will advance diet to clear liquid - serial abdominal exams - Dr Clark, surgery consulted and followed 2) cardiovascular hypertension - bp at goal, continue coreg and lisinopril CAD - continue plavix and renax Chf - pt appears euvolemic on exam, strict monitoring of i/o hyperlipidemia - continue statin 3) ms RA - cont prednisone 4) GI GERD -continue pepcid and protonix 5) psych anxiety - continue xanax 2 tabs HS, home dose DVT PPX - heparin TID FEN - NS @ 75ml/hr - replete electrolytes prn Dispo: Pt currently requires inpatient management of his emergent condition.
[2017-12-03] MEDS: HEPARIN NA (PORCINE) 5,000 UNITS/ML 1ML VIAL SQ SCH ×2 (14:57→22:40)
[2017-12-03] MEDS ORDERED: SODIUM CHLORIDE 1,000 ML IV SCH (14:57)
[2017-12-03] MEDS ORDERED: ATORVASTATIN CA 40 MG TABLET (FP) PO SCH (22:00)
[2017-12-03] MEDS: ALPRAZolam 0.25 MG TABLET PO SCH ×2 (22:39)
[2017-12-03] MEDS: RANITIDINE HCL 150 MG TABLET (FP) PO SCH ×2 (22:40)
[2017-12-04] MEDS: HEPARIN NA (PORCINE) 5,000 UNITS/ML 1ML VIAL SQ SCH ×2 (06:22→14:41)
--- NOTE | 2017-12-04 08:41 | PN ---
Progress Note, Physician Chief Complaint: abdominal pain and diarrhea History of Present Illness: 67 yo male PMH CAD, [place], HTN, CHF, RA, IBS, Prostate cancer with pelvic EBR, radiation proctitis who presented to the ED with constipation alternating with diarrhea, epigastric pain, nausea, abdominal bloating x 6 weeks; his symptoms have improved since admission. - Current Medication List Current Medications: Active Medications Alprazolam (Xanax -) 1 mg PO HS [facility] Last Admin: 12/03/17 22:39 Dose: 1 mg Aspirin (Asa -) 81 mg PO DAILY [facility] Last Admin: 12/03/17 09:36 Dose: 81 mg Atorvastatin Calcium (Lipitor -) 40 mg PO HS [facility] Last Admin: 12/03/17 22:40 Dose: 40 mg Carvedilol (Coreg -) 6.25 mg PO DAILY [facility] Clopidogrel Bisulfate (Plavix -) 75 mg PO DAILY [facility] Last Admin: 12/03/17 09:36 Dose: 75 mg Heparin Sodium (Porcine) (Heparin -) 5,000 unit SQ TID [facility] Last Admin: 12/04/17 06:22 Dose: Not Given Sodium Chloride (Normal Saline -) 1,000 mls @ 75 mls/hr IV ASDIR [facility] Lisinopril (Prinivil) 40 mg PO DAILY [facility] Last Admin: 12/03/17 09:36 Dose: 40 mg Ondansetron HCl (Zofran Injection) 4 mg IVPUSH Q6H PRN PRN Reason: NAUSEA Pantoprazole Sodium (Protonix -) 40 mg PO BID [facility] Last Admin: 12/03/17 22:40 Dose: 40 mg Prednisone (Deltasone -) 5 mg PO DAILY [facility] Last Admin: 12/03/17 09:36 Dose: 5 mg Ranitidine HCl (Zantac -) 300 mg PO HS [facility] Last Admin: 12/03/17 22:40 Dose: 300 mg Ranolazine (Ranexa -) 500 mg PO BID [facility] Last Admin: 12/03/17 22:40 Dose: 500 mg - Objective Vital Signs: Vital Signs Temperature 97.9 F 12/04/17 06:00 Pulse Rate 56 L 12/04/17 06:00 Respiratory Rate 20 12/04/17 06:00 Blood Pressure 113/52 12/04/17 06:00 O2 Sat by Pulse Oximetry (%) 93 L 12/04/17 06:00 Vital Signs Period Temp Pulse Resp BP Sys/Balbuena Pulse Ox Last 24 Hr 97.1 F-97.9 F 50-59 18-20 109-163/52-85 93-100 Constitutional: Yes: No Distress, Calm, Obese Eyes: Yes: Conjunctiva Clear, EOM Intact HENT: Yes: Atraumatic, Normocephalic Neck: Yes: Supple, Trachea Midline Cardiovascular: Yes: Regular Rate and Rhythm, S1 Respiratory: Yes: Regular, CTA Bilaterally Gastrointestinal: Yes: Normal Bowel Sounds, Soft, Abdomen, Obese Edema: No Peripheral Pulses WNL: Yes Peripheral Pulses: Left Radial: 2+, Right Radial: 2+, Left Doralis Pedis: 2+, Right Dorsalis Pedis: 2+ Neurological: Yes: Alert, Oriented Psychiatric: Yes: Alert, Oriented Labs: CBC, BMP 12/03/17 08:24 12/03/17 08:27 - ....Imaging X-ray: Report Reviewed, Image Reviewed (contrast in colon from previous CT scan / no SBO pattern) Problem List - Problems (1) Radiation enterocolitis Assessment/Plan: 67 yo male MMP bereket radiation related enterocolitis/ IBS this is not a bowel obstruction. he does not require emergency surgical interention. abdominal xray shows contrast is contouring the colon. Advance diet as tolerated GI evaluation for bowel regimen Fiber Colace Dietary modification Abdominal xray to track the progress of contrast Code(s): K52.0 - GASTROENTERITIS AND COLITIS DUE TO RADIATION (2) Partial small bowel obstruction Code(s): K56.600 - PARTIAL INTESTINAL OBSTRUCTION, UNSPECIFIED TO CAUSE (3) History of IBS Code(s): Z87.19 - PERSONAL HISTORY OF OTHER DISEASES OF THE DIGESTIVE SYSTEM (4) CAD (coronary artery disease) Code(s): I25.10 - ATHSCL HEART DISEASE OF [place] CORONARY ARTERY W/O ANG PCTRS (5) HTN (hypertension) Code(s): I10 - ESSENTIAL (PRIMARY) HYPERTENSION
[2017-12-04] MEDS ORDERED: PT OWN MED DRAWER 7, Y5N ONE (09:36)
[2017-12-04] MEDS: CLOPIDOGREL BISULFATE 75 MG TABLET (FP) PO SCH (09:55)
[2017-12-04] MEDS: ASPIRIN 81 MG CHEWABLE TABLETS PO SCH (09:55)
[2017-12-04] MEDS: LISINOPRIL 20 MG TABLET (FP) PO SCH (09:56)
[2017-12-04] MEDS: PANTOPRAZOLE 40 MG TABLET (FP) PO SCH (09:57)
[2017-12-04] MEDS: RANOLAZINE E.R. 500 MG TABLET (FP) PO SCH (09:57)
[2017-12-04] MEDS: predniSONE 5 MG TABLET (UD) PO SCH (10:00)
[2017-12-04] MEDS ORDERED: CARVEDILOL 6.25 MG TABLET (FP) PO SCH (10:00)
--- NOTE | 2017-12-04 12:14 | PN ---
Physical Exam: SUBJECTIVE: Patient seen and examinedpatient denies any abdominal pain or nausea , patient's tolerating clear liquid diet reports feeling hungry OBJECTIVE: Patient is a 67 year old male with a significant past medical history of [place], HTN, CHF, RA, IBS, radiation proctitis. Patient was admitted from the emergency department for partial SBO. Vital Signs Period Temp Pulse Resp BP Sys/Balbuena Pulse Ox Last 24 Hr 97.7 F-97.9 F 50-59 18-20 113-163/52-85 93-100 GENERAL: The patient is awake, alert, and fully oriented, in no acute distress. HEAD: Normal with no signs of trauma. EYES: PERRL, extraocular movements intact, sclera anicteric, conjunctiva clear. No ptosis. ENT: Ears normal, nares patent, oropharynx clear without exudates, moist mucous membranes. NECK: Trachea midline, full range of motion, supple. LUNGS: Breath sounds equal, clear to auscultation bilaterally, no wheezes, no crackles, no accessory muscle use. HEART: Regular rate and rhythm, S1, S2 without murmur, rub or gallop. ABDOMEN: Soft, nontender, nondistended, normoactive bowel sounds, no guarding, no rebound, no hepatosplenomegaly, no masses. EXTREMITIES: 2+ pulses, warm, well-perfused, no edema. NEUROLOGICAL: Cranial nerves II through XII grossly intact. Normal speech, gait not observed. PSYCH: Normal mood, normal affect. SKIN: Warm, dry, normal turgor, no rashes or lesions noted Active Medications Generic Name Dose Route Start Last Admin Trade Name Freq PRN Reason Stop Dose Admin Alprazolam 1 mg 12/02/17 23:45 12/03/17 22:39 Xanax - PO 1 mg HS ALPHONSE Administration Aspirin 81 mg 12/03/17 10:00 12/04/17 09:55 Asa - PO 81 mg DAILY ALPHONSE Administration Atorvastatin Calcium 40 mg 12/03/17 22:00 12/03/17 22:40 Lipitor - PO 40 mg HS ALPHONSE Administration Carvedilol 6.25 mg 12/04/17 10:00 12/04/17 09:55 Coreg - PO 6.25 mg DAILY ALPHONSE Administration Clopidogrel Bisulfate 75 mg 12/03/17 10:00 12/04/17 09:55 Plavix - PO 75 mg DAILY ALPHONSE Administration Docusate Sodium 100 mg 12/04/17 14:00 Colace - PO TID [facility] Heparin Sodium (Porcine) 5,000 unit 12/03/17 06:00 12/04/17 06:22 Heparin - SQ Not Given TID [facility] Lisinopril 40 mg 12/03/17 10:00 12/04/17 09:56 Prinivil PO 40 mg DAILY ALPHONSE Administration Ondansetron HCl 4 mg 12/02/17 22:22 Zofran Injection IVPUSH Q6H PRN NAUSEA Pantoprazole Sodium 40 mg 12/02/17 23:45 12/04/17 09:57 Protonix - PO 40 mg BID ALPHONSE Administration Prednisone 5 mg 12/03/17 10:00 12/03/17 09:36 Deltasone - PO 5 mg DAILY ALPHONSE Administration Ranitidine HCl 300 mg 12/02/17 23:45 12/03/17 22:40 Zantac - PO 300 mg HS ALPHONSE Administration Ranolazine 500 mg 12/02/17 23:45 12/04/17 09:57 Ranexa - PO 500 mg BID ALPHONSE Administration ECG normal sinus rhythm vent rate 60, QTC 392 inferior infarct, age undetermined no acute ST/T changes Radiology Reports Abominal xray Impression: Small bowel or high-grade partial small bowel obstruction. CT suggested. Reported By: Eric Holden MD 12/02/[address] abd/pelvis with contrast Impression: 1. Ileus versus low-grade partial small bowel obstruction as described above. No discrete transition point identified. A follow-up radiograph of the abdomen may be obtained to confirm progression of enteric contrast into the colon. 2. Apparent segmental small bowel wall thickening in the right lower quadrant be attributed to an enteritis versus underdistention. 3. Relative mucosal hyperenhancement along the sigmoid colon and rectum is nonspecific, but raises the possibility of a mild infectious versus inflammatory proctocolitis. Fluid throughout the colon suggests diarrhea illness. 4. Since 09/30/2016, a new 6 mm pleural-based nodular opacity in the left lung base and a stable 5 mm right middle lobe pulmonary nodule. Reported By: Kierra Mora DO 12/02/172026 abdominal x-ray, 12/03/2017 Impression:No obstruction or pneumoperitoneum, contrast in colon ASSESSMENT/PLAN: 1) GI partial SBO, resolved - likely radiation enterocolitis vs ibs - patient is tolerating clear liquid diet and will advance to full liquids -repeat abdominal x-ray ordered - serial abdominal exams - Dr Clark, surgery consulted and followed 2) cardiovascular hypertension - bp at goal, continue coreg and lisinopril CAD - continue plavix and renax Chf - pt appears euvolemic on exam, strict monitoring of i/o hyperlipidemia - continue statin 3) ms RA - cont prednisone 4) GI GERD -continue pepcid and protonix 5) psych anxiety - continue xanax 2 tabs HS, home dose DVT PPX - heparin TID FEN - full liquid diet - replete electrolytes prn Dispo: Pt currently requires inpatient management of his emergent condition.
[2017-12-04] MEDS ORDERED: DOCUSATE SODIUM 100 MG CAPSULE (FP) PO SCH (14:00)
[2017-12-04 14:07] VITALS: BP 128/70; PULSE 58; TEMP 98.7
--- NOTE | 2017-12-05 08:45 | EKG ---
Test Reason : Blood Pressure : / mmHG Vent. Rate : 060 BPM Atrial Rate : 060 BPM P-R Int : 170 ms QRS Dur : 080 ms QT Int : 392 ms P-R-T Axes : 024 013 008 degrees QTc Int : 392 ms POOR DATA QUALITY, INTERPRETATION MAY BE ADVERSELY AFFECTED NORMAL SINUS RHYTHM INFERIOR INFARCT (CITED ON OR BEFORE 08-MAY-2013) ABNORMAL ECG WHEN COMPARED WITH ECG OF 08-MAY-2013 09:08, T WAVE INVERSION LESS EVIDENT IN INFERIOR LEADS T WAVE INVERSION NO LONGER EVIDENT IN LATERAL LEADS Confirmed by KUNAL REED, ROBERTO ([id number]) on 12/05/2017 8:45:23 AM Referred By: CAROLIN MCQUEEN Confirmed By:ROBERTO SYED MD
== END 2017-12-04 14:45 | disposition home or self-care (01) | DRG 394 ==
LOC: FER 14:50 → FM/S 22:32 → UNDOADMIN 12-03 02:28
PROVIDERS: ADMIT Internal Medicine; ATTEND Nurse Practitioner Family
DX: K52.0 Gastroenteritis and colitis due to radiation (principal); K56.609 Unspecified intestinal obstruction, unspecified as to partial versus complete obstruction; D72.829 Elevated white blood cell count, unspecified; I25.10 Atherosclerotic heart disease of native coronary artery without angina pectoris; E78.5 Hyperlipidemia, unspecified; K21.9 Gastro-esophageal reflux disease without esophagitis; I11.0 Hypertensive heart disease with heart failure; I50.9 Heart failure, unspecified; F41.9 Anxiety disorder, unspecified; M06.9 Rheumatoid arthritis, unspecified; I25.2 Old myocardial infarction; Z85.46 Personal history of malignant neoplasm of prostate; Z92.3 Personal history of irradiation; Z87.891 Personal history of nicotine dependence
CPT/HCPCS: 36415; 74019-TC-FY; 74177-TC; 80048; 80053; 83690; 83735; 84100; 85025; 93005; 99284-25; J1644; J7030

== ENCOUNTER 2019-09-13 12:07 | Emergency (ER) | payer MEDICARE, OTHER ==
[2019-09-13 12:20] VITALS: BP 155/87; PULSE 54; TEMP 98; BMI 30.4
[2019-09-13] MEDS ORDERED: KETOROLAC TROMETHAMINE 60 MG/2 ML VIAL IM ONE (13:38)
--- NOTE | 2019-09-13 13:38 | PDOC ---
History of Present Illness - General Chief Complaint: Back Pain Stated Complaint: BACK PAIN Time Seen by Provider: 09/13/19 12:59 - History of Present Illness Initial Comments: 09/13/19 16:06 Chief complaint: Mid back pain HPI: Intermittent mid back pain for several years, thought by his assembl[employer] and [employer] to be due to rheumatoid arthritis, and thoracic radiculopathy. Recent exacerbation of pain for approximately 5 days, last night severe enough to interfere with sleep. Pain is located at the level of the lower thoracic spine, paravertebral areas bilaterally, left worse than right. No injury or other type of trauma recently. No low back pain or leg pain. Review of systems: No fever/chills, URI symptoms, sore throat, cough, chest pain , shortness of breath, abdominal pain, nausea, vomiting, diarrhea, visual or focal neurologic symptoms, unsteadiness of gait. Remainder of systems reviewed and negative Past medical history: Extensive including coronary artery disease, myocardial infarction but no bypass or stents. Rheumatoid arthritis, GERD, upper back and low back pain with sciatica. Social history/family history reviewed and noncontributory Physical exam: Alert and oriented well-developed well-nourished no acute distress cheerful and cooperative Afebrile, vital signs normal HEENT normal Neck supple without bruit mass or nodes Chest clear, full breath sounds bilaterally, no wheezes rales or rhonchi, no splinting with deep inspiration No chest wall or rib cage tenderness or deformity. Spasm of the paravertebral muscles, left greater than right, visible and palpable in the area of the lower thoracic spine. No point tenderness over the vertebral bodies. No deformity or signs of inflammation. No rash or other skin changes. CV S1-S2 normal without murmur rub or gallop pulses full and symmetric no JVD or edema no bruits Abdomen soft nontender without mass organomegaly LS spine without deformity or point tenderness. There is mild loss of normal lumbar lordosis Neurological C2 to 12 intact. Strength full and symmetric. No focal sensorimotor deficits. Gait stable and unimpaired No sign of active inflammation of any of the joints. No adenopathy Extremities no CCE Impression: Upper back pain, possibly muscular, possibly reactive to facet joint inflammation from rheumatoid arthritis. No evidence of pulmonary or cardiac etiology Plan: Rest, heat, symptomatic treatment, and follow-up [employer] 2 to 3 days. Pain was improved with Toradol, fully ambulatory with control of pain upon discharge with to follow-up as directed. Past History - Past Medical History Allergies/Adverse Reactions: Allergies Allergy/AdvReac Type Severity Reaction Status Date / Time Penicillins Allergy Intermediate Rash Verified 09/13/19 12:09 Home Medications: Ambulatory Orders Alprazolam 0.5 mg PO TID 12/02/17 Aspirin 81 mg PO DAILY 12/02/17 Atorvastatin Ca [Lipitor] 40 mg PO HS 12/02/17 Clopidogrel Bisulfate [Clopidogrel] 75 mg PO DAILY 12/02/17 Famotidine [Pepcid -] 40 mg PO DAILY 12/02/17 Lisinopril [Prinivil -] 40 mg PO DAILY 12/02/17 Nitroglycerin 0.4 mg SL PRN 12/02/17 Omeprazole 40 mg PO BID 12/02/17 Prednisone 5 mg PO DAILY 12/02/17 Ranolazine [Ranexa] 500 mg PO Q12H 12/02/17 Hydroxychloroquine Sulfate 200 mg PO BID 09/13/19 Lidocaine 5% Patch [Lidoderm -] 1 patch TP DAILY 09/13/19 Metoprolol Succinate [Toprol Xl] 50 mg PO BID 09/13/19 Oxycodone HCl/Acetaminophen [Percocet 5-325 mg Tablet] 1 - 2 tab PO Q6H PRN #20 tab MDD 6 09/13/19 Cancer: Yes (PROSTATE CA) COPD: No GI Disorders: Yes (IBS) HTN: Yes - Psycho Social/Smoking Cessation Hx Smoking Status: Yes Smoking History: Former smoker Have you smoked in the past 12 months: No Number of Cigarettes Smoked Daily: 20 Information on smoking cessation initiated: No 'Breaking Loose' booklet given: 05/07/13 Hx Alcohol Use: Yes Drug/Substance Use Hx: No Substance Use Type: None Hx Substance Use Treatment: No *Physical Exam - Vital Signs Last Vital Signs Temp Pulse Resp BP Pulse Ox 98 F 54 L 18 155/87 98 09/13/19 12:07 09/13/19 12:07 09/13/19 12:07 09/13/19 12:07 09/13/19 12:07 Discharge - Discharge Information Problems reviewed: Yes Clinical Impression/Diagnosis: Thoracic back pain Qualifiers: Chronicity: acute Back pain laterality: bilateral Qualified Code(s): M54.6 - Pain in thoracic spine Condition: Improved Disposition: HOME - Admission No - Additional Discharge Information Prescriptions: Oxycodone HCl/Acetaminophen [Percocet 5-325 mg Tablet] 1 - 2 tab PO Q6H PRN #20 tab MDD 6 PRN Reason: Severe Pain - Follow up/Referral Referrals: Cedrick Cabral MD [Primary Care Provider] - - Patient Discharge Instructions Patient Printed Discharge Instructions: Thoracic Back Pain Additional Instructions: Heat. Lidocaine patch as directed. Pain medication for severe discomfort. Follow-up with your [employer] and [employer] in 2 or 3 days. Return to ER if symptoms worsen or additional symptoms develop. - Post Discharge Activity
[2019-09-13] MEDS ORDERED: KETOROLAC TROMETHAMINE 30 MG/1 ML VIAL ONE (13:40)
== END 2019-09-13 15:40 | disposition home or self-care (01) ==
LOC: FER 12:07
PROC: 3E0233Z Introduction of Anti-inflammatory into Muscle, Percutaneous Approach (ICD-10-PCS; principal; 2019-09-13)
DX: M54.6 Pain in thoracic spine (principal); Z88.0 Allergy status to penicillin; M06.9 Rheumatoid arthritis, unspecified; M54.14 Radiculopathy, thoracic region
CPT/HCPCS: 96372; 99284-25

== ENCOUNTER → 2020-11-07 | Day surgery (SDC) | payer MEDICARE, OTHER ==
[2020-10-30 15:22] VITALS: BMI 32.6
[~2020-11-07] MED LIST: BUPIVACAINE LIPOSOME/PF (EXPAREL) 266 MG/20 ML VIAL ONE; MIDAZOLAM HCL 2 MG/2 ML SINGLE DOSE VIAL ONE; SODIUM CHLORIDE 0.9% P/F 10 ML VIAL IJ ONE; VANCOMYCIN 1,000 MG VIAL (RESTRICTED TO ID ONLY) ONE
[2020-11-07 11:05] VITALS: BP 117/77; PULSE 60; TEMP 97.9
== END | disposition home or self-care (01) ==
LOC: FASUSAT 09:49 → EDSTATUS 12:00
PROVIDERS: ATTEND Orthopaedic Surgery
DX: Z53.8 Procedure and treatment not carried out for other reasons (principal)
CPT/HCPCS: 93005

== ENCOUNTER 2020-12-05 09:45 | Day surgery (SDC) | payer MEDICARE, OTHER ==
[2020-11-23 12:36] VITALS: BMI 32.6
[2020-12-05] MEDS ORDERED: VANCOMYCIN 1,000 MG VIAL (RESTRICTED TO ID ONLY) ONE (11:54)
[2020-12-05] MEDS ORDERED: BUPIVACAINE LIPOSOME/PF (EXPAREL) 266 MG/20 ML VIAL ONE (12:01)
[2020-12-05] MEDS ORDERED: MIDAZOLAM HCL 2 MG/2 ML SINGLE DOSE VIAL ONE ×2 (12:01→12:47)
[2020-12-05] MEDS ORDERED: BUPIVACAINE HCL 50 ML ONE ×2 (12:01→12:56)
[2020-12-05] MEDS ORDERED: SODIUM CHLORIDE 0.9% P/F 10 ML VIAL IJ ONE (12:02)
[2020-12-05] MEDS ORDERED: PROPOFOL 20 ML ONE ×5 (12:47→15:11)
[2020-12-05] MEDS ORDERED: EPINEPHrine/PF 1 MG/1 ML (1:1,000) AMPULE ONE (12:59)
[2020-12-05] MEDS ORDERED: ePHEDrine SULFATE 50 MG/1 ML AMPULE ONE ×2 (13:08→13:40)
[2020-12-05] MEDS ORDERED: ceFAZolin SODIUM 1 GM VIAL ONE (13:10)
[2020-12-05] MEDS ORDERED: DEXAMETHASONE SOD PHOSPHATE 4 MG/1 ML VIAL ONE (13:17)
[2020-12-05] MEDS ORDERED: ONDANSETRON 4 MG/2 ML VIAL ONE (13:17)
[2020-12-05] MEDS ORDERED: GLYCOPYRROLATE 0.2 MG/1 ML VIAL ONE (13:21)
[2020-12-05] MEDS ORDERED: BUPIVICAINE 0.25%/MORPH PF/KETOROLAC - 51ML DISP.SYRINGE IA ONE ×2 (13:40→15:00)
[2020-12-05] MEDS ORDERED: VANCOMYCIN 1,000 MG VIAL (RESTRICTED TO ID ONLY) IVPB ONE (15:10)
[2020-12-05] MEDS ORDERED: ONDANSETRON 4 MG/2 ML VIAL IVPUSH PRN ×2 (15:46→15:49)
[2020-12-05] MEDS ORDERED: ACETAMINOPHEN 1000 MG/100 ML VIAL (NON FORMULARY) IVPB ONE (15:46)
[2020-12-05] MEDS ORDERED: PROMETHAZINE HCL 25 MG/1 ML VIAL IVPUSH PRN (15:46)
[2020-12-05] MEDS ORDERED: MAGNESIUM HYDROX 2400MG/30ML ORAL SUSPENSION 30 ML CUP PO PRN (15:49)
[2020-12-05] MEDS ORDERED: MAG HYDROX/AL HYDROX/SIMETH 30 ML UNIT-DOSE CUP PO PRN (15:49)
[2020-12-05] MEDS ORDERED: LACTATED RINGERS SOLUTION 1,000 ML IV SCH ×2 (16:00)
[2020-12-05] MEDS ORDERED: ACETAMINOPHEN INJECTION 100 ML IVPB ONE (16:03)
[2020-12-05] MEDS: RANOLAZINE E.R. 500 MG TABLET (FP) PO SCH (17:38)
[2020-12-05] MEDS: ACETAMINOPHEN 325 MG TABLET (FP) PO SCH ×2 (17:39→21:00)
[2020-12-05] MEDS: oxyCODONE HCL 5 MG TABLET PO PRN ×2 (18:08→22:26)
[2020-12-05] MEDS: CEFAZOLIN 2 GM/D5W 2 GM/50 ML ML IVPB SCH (20:56)
[2020-12-05] MEDS: SENNOSIDES/DOCUSATE COMBO (SENNA PLUS) TABLET (UD) PO SCH (20:59)
[2020-12-05] MEDS: ATORVASTATIN CA 40 MG TABLET (FP) PO SCH (20:59)
[2020-12-05] MEDS: GABAPENTIN 300 MG CAPSULE PO SCH (21:00)
[2020-12-05] MEDS: HYDROXYCHLOROQUINE SO4 200 MG TABLET (FP) PO SCH (21:00)
[2020-12-05] MEDS ORDERED: PATIENT'S OWN MEDICATION (NON-FORMULARY) (Omeprazole [Omeprazole] 20 MG Tablet.Dr) PO SCH (22:00)
[2020-12-06] MEDS: ACETAMINOPHEN 325 MG TABLET (FP) PO SCH ×4 (02:00→21:12)
[2020-12-06] MEDS: RANOLAZINE E.R. 500 MG TABLET (FP) PO SCH ×2 (03:00→17:23)
[2020-12-06] MEDS: oxyCODONE HCL 5 MG TABLET PO PRN ×2 (03:30→06:27)
[2020-12-06] MEDS: CEFAZOLIN 2 GM/D5W 2 GM/50 ML ML IVPB SCH (05:26)
[2020-12-06] MEDS: ALPRAZolam 0.25 MG TABLET PO SCH ×3 (06:32→21:12)
[2020-12-06 07:59] LABS: HEMATOCRIT 41.7 % (35.4-49); HEMOGLOBIN 14.2 GM/dl (11.7-16.9); MCH 33.9 pg (25.7-33.7); MCHC 34.2 g/dl (32.0-35.9); MEAN CELL VOLUME 99.2 fl (80-96); MEAN PLT VOLUME 9.1 fl (7.5-11.1); PLATELET COUNT 244 K/MM3 (134-434); RDW 12.4 % (11.9-15.9); WHITE BLOOD COUNT 12.4 K/mm3 (4.0-10.8)
[2020-12-06 08:05] LABS: CALCIUM 8.7 mg/dl (8.5-10); CREATININE 1.1 mg/dl (0.55-1.3)
[2020-12-06] MEDS ORDERED: PATIENT'S OWN MEDICATION (NON-FORMULARY) (Famotidine 40 MG Tablet) PO SCH (10:00)
[2020-12-06] MEDS ORDERED: FAMOTIDINE 20 MG TABLET PO SCH (10:00)
[2020-12-06] MEDS: SENNOSIDES/DOCUSATE COMBO (SENNA PLUS) TABLET (UD) PO SCH ×2 (11:21→21:10)
[2020-12-06] MEDS: MULTIVITAMINS (DAILY MVI) TABLET (FP) PO SCH (11:22)
[2020-12-06] MEDS: amLODIPine BESYLATE 5 MG TABLET (FP) PO SCH (11:22)
[2020-12-06] MEDS: HYDROXYCHLOROQUINE SO4 200 MG TABLET (FP) PO SCH ×2 (11:22→21:11)
[2020-12-06] MEDS: LISINOPRIL 20 MG TABLET PO SCH (11:22)
[2020-12-06] MEDS: PANTOPRAZOLE 40 MG TABLET PO SCH (11:22)
[2020-12-06] MEDS: GABAPENTIN 300 MG CAPSULE PO SCH ×2 (11:22→21:08)
[2020-12-06] MEDS: ENOXAPARIN NA (PORCINE) 40 MG/0.4 ML DISP.SYRIN SQ SCH (11:23)
[2020-12-06] MEDS: oxyCODONE HCL 10 MG SUSTAINED ACTING TABLET PO SCH ×2 (11:23→21:13)
[2020-12-06] MEDS ORDERED: oxyCODONE HCL 5 MG TABLET PO PRN ×2 (11:26)
[2020-12-06] MEDS ORDERED: MAGNESIUM SULF 50% (8.12 MEQ/2 ML-1 GM VIAL) IVPB ONE (12:09)
[2020-12-06] MEDS: CLOPIDOGREL BISULFATE 75 MG TABLET (FP) PO SCH (12:19)
[2020-12-06] MEDS: ASPIRIN 81 MG CHEWABLE TABLETS PO SCH (12:19)
[2020-12-06] MEDS ORDERED: MAGNESIUM SULFATE IN WATER 2 GM/50 ML IVPB IVPB ONE (12:30)
[2020-12-06] MEDS: traMADol HCL 50 MG TABLET PO PRN ×2 (16:01→21:10)
[2020-12-06] MEDS: predniSONE 5 MG TABLET (UD) PO SCH (21:10)
[2020-12-06] MEDS: ATORVASTATIN CA 40 MG TABLET (FP) PO SCH (21:11)
[2020-12-07] MEDS: traMADol HCL 50 MG TABLET PO PRN ×2 (02:06→06:33)
[2020-12-07] MEDS: ACETAMINOPHEN 325 MG TABLET (FP) PO SCH ×4 (03:08→21:33)
[2020-12-07] MEDS: RANOLAZINE E.R. 500 MG TABLET (FP) PO SCH ×2 (03:08→16:42)
[2020-12-07] MEDS: ALPRAZolam 0.25 MG TABLET PO SCH ×3 (06:32→21:34)
[2020-12-07 08:33] LABS: BASO % 0.4 % (0-2.0); EOS % 1.8 % (0-4.5); HEMOGLOBIN 12.9 GM/dl (11.7-16.9); LYMPH % 4.8 % (8-40); MCH 33.9 pg (25.7-33.7); MEAN CELL VOLUME 99.7 fl (80-96); MEAN PLT VOLUME 9.2 fl (7.5-11.1); MONO % 7.5 % (3.8-10.2); NEUT % 85.5 % (42.8-82.8); PLATELET COUNT 242 K/MM3 (134-434); RBC 3.81 M/mm3 (4.00-5.60); RDW 12.8 % (11.9-15.9)
[2020-12-07 08:52] LABS: ALBUMIN 2.8 g/dl (3.4-5.0); BILIRUBIN,TOTAL 1.3 mg/dl (0.2-1); CALCIUM 8.8 mg/dl (8.5-10); CREATININE 1.5 mg/dl (0.55-1.3); MAGNESIUM 1.9 mg/dL (1.8-2.4); TOT PROT 5.3 g/dl (6.4-8.2)
[2020-12-07] MEDS: ENOXAPARIN NA (PORCINE) 40 MG/0.4 ML DISP.SYRIN SQ SCH (12:22)
[2020-12-07] MEDS: GABAPENTIN 300 MG CAPSULE PO SCH ×2 (12:23→21:33)
[2020-12-07] MEDS: predniSONE 5 MG TABLET (UD) PO SCH ×2 (12:23→21:34)
[2020-12-07] MEDS: CLOPIDOGREL BISULFATE 75 MG TABLET (FP) PO SCH (12:23)
[2020-12-07] MEDS: MULTIVITAMINS (DAILY MVI) TABLET (FP) PO SCH (12:23)
[2020-12-07] MEDS: HYDROXYCHLOROQUINE SO4 200 MG TABLET (FP) PO SCH ×2 (12:23→21:34)
[2020-12-07] MEDS: PANTOPRAZOLE 40 MG TABLET PO SCH (12:23)
[2020-12-07] MEDS: ASPIRIN 81 MG CHEWABLE TABLETS PO SCH (12:23)
[2020-12-07] MEDS: amLODIPine BESYLATE 5 MG TABLET (FP) PO SCH (12:24)
[2020-12-07] MEDS: LISINOPRIL 20 MG TABLET PO SCH (12:24)
[2020-12-07] MEDS: oxyCODONE HCL 10 MG SUSTAINED ACTING TABLET PO SCH ×2 (12:24→21:45)
[2020-12-07] MEDS: SENNOSIDES/DOCUSATE COMBO (SENNA PLUS) TABLET (UD) PO SCH ×2 (12:24→21:33)
[2020-12-07] MEDS: ATORVASTATIN CA 40 MG TABLET (FP) PO SCH (21:34)
[2020-12-08] MEDS: RANOLAZINE E.R. 500 MG TABLET (FP) PO SCH ×2 (03:01→16:32)
[2020-12-08] MEDS: ACETAMINOPHEN 325 MG TABLET (FP) PO SCH ×2 (03:02→09:32)
[2020-12-08] MEDS: ALPRAZolam 0.25 MG TABLET PO SCH ×3 (06:38→21:41)
[2020-12-08 08:53] LABS: BASO % 4.2 % (0-2.0); EOS % 0.9 % (0-4.5); HEMATOCRIT 35.9 % (35.4-49); HEMOGLOBIN 12.2 GM/dl (11.7-16.9); LYMPH % 6.2 % (8-40); MCH 33.6 pg (25.7-33.7); MCHC 33.9 g/dl (32.0-35.9); MEAN CELL VOLUME 99.3 fl (80-96); MEAN PLT VOLUME 8.8 fl (7.5-11.1); MONO % 5.5 % (3.8-10.2); NEUT % 83.2 % (42.8-82.8); PLATELET COUNT 276 K/MM3 (134-434); RBC 3.62 M/mm3 (4.00-5.60); RDW 12.5 % (11.9-15.9); WHITE BLOOD COUNT 17.4 K/mm3 (4.0-10.8)
[2020-12-08 08:57] LABS: ALBUMIN 2.9 g/dl (3.4-5.0); BILIRUBIN,TOTAL 1.2 mg/dl (0.2-1); CREATININE 1.2 mg/dl (0.55-1.3); MAGNESIUM 2.1 mg/dL (1.8-2.4)
[2020-12-08] MEDS: ENOXAPARIN NA (PORCINE) 40 MG/0.4 ML DISP.SYRIN SQ SCH (09:15)
[2020-12-08] MEDS: predniSONE 5 MG TABLET (UD) PO SCH ×2 (09:16→21:35)
[2020-12-08] MEDS: ASPIRIN 81 MG CHEWABLE TABLETS PO SCH (09:16)
[2020-12-08] MEDS: LISINOPRIL 20 MG TABLET PO SCH (09:16)
[2020-12-08] MEDS: amLODIPine BESYLATE 5 MG TABLET (FP) PO SCH ×2 (09:16→09:23)
[2020-12-08] MEDS: GABAPENTIN 300 MG CAPSULE PO SCH (09:16)
[2020-12-08] MEDS: SENNOSIDES/DOCUSATE COMBO (SENNA PLUS) TABLET (UD) PO SCH ×2 (09:16→21:34)
[2020-12-08] MEDS: HYDROXYCHLOROQUINE SO4 200 MG TABLET (FP) PO SCH ×2 (09:17→21:34)
[2020-12-08] MEDS: oxyCODONE HCL 10 MG SUSTAINED ACTING TABLET PO SCH ×2 (09:17→21:35)
[2020-12-08] MEDS: PANTOPRAZOLE 40 MG TABLET PO SCH (09:17)
[2020-12-08] MEDS: CLOPIDOGREL BISULFATE 75 MG TABLET (FP) PO SCH (09:17)
[2020-12-08] MEDS: MULTIVITAMINS (DAILY MVI) TABLET (FP) PO SCH (09:32)
[2020-12-08] MEDS ORDERED: BISACODYL 5 MG TABLET.DR (FP) PO ONE (13:27)
[2020-12-08] MEDS: traMADol HCL 50 MG TABLET PO PRN ×2 (18:07→22:00)
[2020-12-08] MEDS: ATORVASTATIN CA 40 MG TABLET (FP) PO SCH (21:34)
[2020-12-09] MEDS: RANOLAZINE E.R. 500 MG TABLET (FP) PO SCH (06:15)
[2020-12-09] MEDS: traMADol HCL 50 MG TABLET PO PRN (07:02)
[2020-12-09] MEDS: ALPRAZolam 0.25 MG TABLET PO SCH (07:04)
[2020-12-09 09:08] VITALS: BP 145/56; PULSE 82; TEMP 98.5
[2020-12-09] MEDS: HYDROXYCHLOROQUINE SO4 200 MG TABLET (FP) PO SCH (09:09)
[2020-12-09] MEDS: ENOXAPARIN NA (PORCINE) 40 MG/0.4 ML DISP.SYRIN SQ SCH (09:09)
[2020-12-09] MEDS: MULTIVITAMINS (DAILY MVI) TABLET (FP) PO SCH (09:09)
[2020-12-09] MEDS: CLOPIDOGREL BISULFATE 75 MG TABLET (FP) PO SCH (09:09)
[2020-12-09] MEDS: amLODIPine BESYLATE 5 MG TABLET (FP) PO SCH (09:09)
[2020-12-09] MEDS: PANTOPRAZOLE 40 MG TABLET PO SCH (09:10)
[2020-12-09] MEDS: ASPIRIN 81 MG CHEWABLE TABLETS PO SCH (09:10)
[2020-12-09] MEDS: predniSONE 5 MG TABLET (UD) PO SCH (09:10)
[2020-12-09] MEDS: LISINOPRIL 20 MG TABLET PO SCH (09:10)
[2020-12-09] MEDS: SENNOSIDES/DOCUSATE COMBO (SENNA PLUS) TABLET (UD) PO SCH (09:10)
[2020-12-09 09:23] LABS: BASO % 0.3 % (0-2.0); HEMATOCRIT 32.8 % (35.4-49); HEMOGLOBIN 11.1 GM/dl (11.7-16.9); LYMPH % 5.1 % (8-40); MCH 33.5 pg (25.7-33.7); MCHC 33.9 g/dl (32.0-35.9); MEAN CELL VOLUME 98.8 fl (80-96); MEAN PLT VOLUME 9.5 fl (7.5-11.1); MONO % 8.7 % (3.8-10.2); NEUT % 84.9 % (42.8-82.8); PLATELET COUNT 285 K/MM3 (134-434); RBC 3.32 M/mm3 (4.00-5.60); RDW 12.5 % (11.9-15.9); WHITE BLOOD COUNT 13.7 K/mm3 (4.0-10.8)
[2020-12-09] MEDS: oxyCODONE HCL 10 MG SUSTAINED ACTING TABLET PO SCH (09:26)
== END 2020-12-09 13:10 | disposition home or self-care (01) ==
LOC: FASUSAT 09:45 → FM/S 17:02 → FASUSAT 12-09 13:10
PROVIDERS: ATTEND Orthopaedic Surgery
PROC: 8E0YXBZ Computer Assisted Procedure of Lower Extremity (ICD-10-PCS; 2020-12-05)
PROC: 8E0Y0CZ Robotic Assisted Procedure of Lower Extremity, Open Approach (ICD-10-PCS; 2020-12-05)
PROC: 0SRD0J9 Replacement of Left Knee Joint with Synthetic Substitute, Cemented, Open Approach (ICD-10-PCS; principal; 2020-12-05 13:25)
DX: M17.12 Unilateral primary osteoarthritis, left knee (principal); I10 Essential (primary) hypertension; E78.5 Hyperlipidemia, unspecified; I25.10 Atherosclerotic heart disease of native coronary artery without angina pectoris; J44.9 Chronic obstructive pulmonary disease, unspecified; Z85.46 Personal history of malignant neoplasm of prostate
CPT/HCPCS: 20985; 27447; C1776; S2900; 36415; 73560-TC-LT-FY; 80048; 80053; 81003; 83735; 85025; 85027; 88305-TC; 88311-TC; 93005; 93971-TC; 94760; 97010-GP; 97116-GP; 97163-GP; J0131

== ENCOUNTER 2021-05-10 05:47 | Day surgery (SDC) | payer MEDICARE, OTHER ==
[2021-04-30 12:11] VITALS: BMI 32.6
[2021-05-10] MEDS ORDERED: BUPIVACAINE HCL 50 ML ONE (07:38)
[2021-05-10] MEDS ORDERED: SUCCINYLCHOLINE CHLORIDE 200 MG/10 ML SYRINGE ONE (07:39)
[2021-05-10] MEDS ORDERED: PROPOFOL 20 ML ONE ×4 (07:39)
[2021-05-10] MEDS ORDERED: MIDAZOLAM HCL 2 MG/2 ML SINGLE DOSE VIAL ONE ×2 (07:39→07:57)
[2021-05-10] MEDS ORDERED: DEXAMETHASONE SOD PHOSPHATE 4 MG/1 ML VIAL ONE (08:09)
[2021-05-10] MEDS ORDERED: ceFAZolin SODIUM 1 GM VIAL ONE (08:09)
[2021-05-10] MEDS ORDERED: ONDANSETRON 4 MG/2 ML VIAL ONE (08:09)
[2021-05-10] MEDS ORDERED: TRANEXAMIC ACID 1000 MG/10 ML VIAL ONE ×2 (08:09→09:42)
[2021-05-10] MEDS ORDERED: BUPIVICAINE 0.25%/MORPH PF/KETOROLAC - 51ML DISP.SYRINGE IA ONE ×2 (08:23→09:23)
[2021-05-10] MEDS ORDERED: ONDANSETRON 4 MG/2 ML VIAL IVPUSH PRN (10:00)
[2021-05-10] MEDS ORDERED: PANTOPRAZOLE 40 MG TABLET PO SCH (10:00)
[2021-05-10] MEDS ORDERED: LACTATED RINGERS SOLUTION 1,000 ML IV SCH (10:00)
[2021-05-10] MEDS ORDERED: MAG HYDROX/AL HYDROX/SIMETH 30 ML UNIT-DOSE CUP PO PRN (10:00)
[2021-05-10] MEDS ORDERED: ALPRAZolam 1 MG TABLET PO PRN (10:03)
[2021-05-10] MEDS ORDERED: ACETAMINOPHEN 1000 MG/100 ML VIAL IVPB ONE (10:18)
[2021-05-10] MEDS ORDERED: oxyCODONE HCL 5 MG TABLET PO PRN ×2 (10:18)
[2021-05-10] MEDS: KETOROLAC TROMETHAMINE 30 MG/1 ML VIAL IVPUSH SCH ×3 (10:25→18:03)
[2021-05-10] MEDS: RANOLAZINE E.R. 1,000 MG TABLET (FP) PO SCH ×2 (11:50→21:22)
[2021-05-10] MEDS: SENNOSIDES/DOCUSATE COMBO (SENNA PLUS) TABLET (UD) PO SCH ×2 (11:50→21:21)
[2021-05-10] MEDS: MULTIVITAMINS (DAILY MVI) TABLET (FP) PO SCH (11:50)
[2021-05-10] MEDS ORDERED: TRIMETHOBENZAMIDE HCL 200MG/2ML INJ IM PRN (13:22)
[2021-05-10] MEDS ORDERED: CEFAZOLIN 1 GM/D5W 50 ML IVPB SCH (14:00)
[2021-05-10] MEDS ORDERED: traMADol HCL 50 MG TABLET PO ONE (15:09)
[2021-05-10] MEDS: CEFAZOLIN 1 GM/D5W 1 GM/50 ML BAG IVPB SCH ×2 (15:48→23:42)
[2021-05-10] MEDS: ACETAMINOPHEN 500 MG TABLET (FP) PO SCH ×2 (18:00→23:42)
[2021-05-10] MEDS: HYDROXYCHLOROQUINE SO4 200 MG TABLET (FP) PO SCH (21:21)
[2021-05-10] MEDS: FAMOTIDINE 20 MG TABLET PO SCH (21:21)
[2021-05-10] MEDS: oxyCODONE HCL 10 MG SUSTAINED ACTING TABLET PO SCH (21:21)
[2021-05-10] MEDS ORDERED: ATORVASTATIN CA 40 MG TABLET (FP) PO SCH (22:00)
[2021-05-10] MEDS ORDERED: predniSONE 1 MG TABLET (FP) PO SCH (22:00)
[2021-05-10] MEDS ORDERED: traMADol HCL 50 MG TABLET PO PRN (22:28)
[2021-05-10] MEDS ORDERED: ACETAMINOPHEN 650 MG/20.3 ML ORAL SOLUTION (CUPS) PO PRN (22:30)
[2021-05-11] MEDS: KETOROLAC TROMETHAMINE 30 MG/1 ML VIAL IVPUSH SCH ×2 (02:12→10:01)
[2021-05-11] MEDS: ACETAMINOPHEN 500 MG TABLET (FP) PO SCH (06:44)
[2021-05-11] MEDS ORDERED: predniSONE 1 MG TABLET (FP) PO SCH (07:00)
[2021-05-11 09:03] LABS: HEMATOCRIT 39.4 % (35.4-49); HEMOGLOBIN 13.7 GM/dl (11.7-16.9); MCH 35.5 pg (25.7-33.7); MCHC 34.9 g/dl (32.0-35.9); MEAN CELL VOLUME 101.8 fl (80-96); MEAN PLT VOLUME 9.5 fl (7.5-11.1); PLATELET COUNT 251 10^3/uL (134-434); RBC 3.87 M/mm3 (4.00-5.60); RDW 13.8 % (11.9-15.9); WHITE BLOOD COUNT 19.4 K/mm3 (4.0-10.8)
[2021-05-11 09:04] LABS: CALCIUM 9.2 mg/dl (8.5-10); CREATININE 1.1 mg/dl (0.55-1.3)
[2021-05-11 09:59] VITALS: BP 106/55; PULSE 77; TEMP 98.3
[2021-05-11] MEDS ORDERED: BIOTIN 10000 MCG PO SCH (10:00)
[2021-05-11] MEDS ORDERED: LISINOPRIL 20 MG TABLET PO SCH (10:00)
[2021-05-11] MEDS: oxyCODONE HCL 10 MG SUSTAINED ACTING TABLET PO SCH (10:00)
[2021-05-11] MEDS: SENNOSIDES/DOCUSATE COMBO (SENNA PLUS) TABLET (UD) PO SCH (10:00)
[2021-05-11] MEDS ORDERED: ENOXAPARIN NA (PORCINE) 30 MG/0.3 ML DISP.SYRIN SQ SCH (10:00)
[2021-05-11] MEDS ORDERED: amLODIPine BESYLATE 5 MG TABLET (FP) PO SCH (10:00)
[2021-05-11] MEDS ORDERED: NIACIN 50 MG PO SCH (10:00)
[2021-05-11] MEDS: HYDROXYCHLOROQUINE SO4 200 MG TABLET (FP) PO SCH (10:00)
[2021-05-11] MEDS ORDERED: ASPIRIN COATED 81 MG TABLET.EC PO SCH (10:00)
[2021-05-11] MEDS ORDERED: CLOPIDOGREL BISULFATE 75 MG TABLET (FP) PO SCH (10:00)
[2021-05-11] MEDS: FAMOTIDINE 20 MG TABLET PO SCH (10:00)
[2021-05-11] MEDS: MULTIVITAMINS (DAILY MVI) TABLET (FP) PO SCH (10:01)
[2021-05-11] MEDS: RANOLAZINE E.R. 1,000 MG TABLET (FP) PO SCH (10:01)
== END 2021-05-11 11:38 | disposition home or self-care (01) ==
LOC: SUATTDRO 05:47 → FASUSAT 05:47 → FM/S 11:22 → FASUSAT 05-11 11:38
PROVIDERS: ATTEND Nurse Practitioner Family
PROC: 8E0YXBZ Computer Assisted Procedure of Lower Extremity (ICD-10-PCS; 2021-05-10)
PROC: 8E0Y0CZ Robotic Assisted Procedure of Lower Extremity, Open Approach (ICD-10-PCS; 2021-05-10)
PROC: 0SRC0J9 Replacement of Right Knee Joint with Synthetic Substitute, Cemented, Open Approach (ICD-10-PCS; principal; 2021-05-10 08:09)
DX: M17.11 Unilateral primary osteoarthritis, right knee (principal); I10 Essential (primary) hypertension; I25.10 Atherosclerotic heart disease of native coronary artery without angina pectoris; E78.5 Hyperlipidemia, unspecified; Z95.5 Presence of coronary angioplasty implant and graft; K21.9 Gastro-esophageal reflux disease without esophagitis; Z85.46 Personal history of malignant neoplasm of prostate; M06.9 Rheumatoid arthritis, unspecified; Z88.0 Allergy status to penicillin
CPT/HCPCS: 20985; 27447; C1776; S2900; 36415; 73560-TC-RT-FY; 80048; 85027; 88305-TC; 88311-TC; 94760; 97010-GP; 97116-GP; 97162-GP; J0131

== ENCOUNTER 2023-03-12 16:01 | Inpatient (IN) | payer MEDICARE, OTHER ==
[2023-03-12] MEDS ORDERED: SODIUM CHLORIDE 0.9% 500 ML INFUS.BAG IV ONE (17:02)
[2023-03-12] MEDS ORDERED: ALBUTEROL SO4 2.5/IPRATROPIUM 0.5 INH SOL 3 ML VIAL.NEB. NEB ONE (17:48)
[2023-03-12 17:49] LABS: BASO % 2.7 % (0-2.0); EOS % 1.4 % (0-4.5); HEMATOCRIT 40.2 % (35.4-49); HEMOGLOBIN 13.2 GM/dL (11.7-16.9); LYMPH % 8.6 % (8-40); MCH 33.8 pg (25.7-33.7); MCHC 32.8 g/dl (32.0-35.9); MEAN CELL VOLUME 102.9 fl (80-96); MEAN PLT VOLUME 8.8 fl (7.5-11.1); MONO % 13.8 % (3.8-10.2); NEUT % 73.5 % (42.8-82.8); PLATELET COUNT 353 10^3/uL (134-434); RDW 13.9 % (11.9-15.9); WHITE BLOOD COUNT 12.6 K/mm3 (4.0-10.0)
[2023-03-12 18:05] LABS: POTASSIUM 5.4 mmol/L (3.5-5.1)
[2023-03-12 18:09] LABS: CALCIUM 8.3 mg/dL (8.5-10.1)
[2023-03-12 18:10] LABS: ALBUMIN 2.4 g/dl (3.4-5.0); BLOOD UREA NITROGEN 10.7 mg/dL (7-18); MAGNESIUM 1.3 mg/dL (1.8-2.4)
[2023-03-12 18:12] LABS: CREATININE 1.2 mg/dL (0.55-1.3)
[2023-03-12 18:14] LABS: BILIRUBIN,TOTAL 1.2 mg/dL (0.2-1); TOT PROT 5.8 g/dl (6.4-8.2)
[2023-03-12] MEDS: ALBUTEROL SO4 2.5/IPRATROPIUM 0.5 INH SOL 3 ML VIAL.NEB. NEB SCH (18:16)
[2023-03-12] MEDS ORDERED: LACTATED RINGERS SOLUTION 1000 ML INFUS.BAG IV ONE (18:42)
[2023-03-12] MEDS ORDERED: ACETAMINOPHEN 1000 MG/100 ML BAG IVPB ONE (18:42)
[2023-03-12] MEDS ORDERED: MAGNESIUM SULF 50% (8.12 MEQ/2 ML-1 GM VIAL) IVPB ONE (18:43)
[2023-03-12] MEDS ORDERED: MAGNESIUM SULFATE IN WATER 2 GM/50 ML IVPB IVPB ONE (19:14)
[2023-03-12] MEDS ORDERED: ACETAMINOPHEN INJECTION 100 ML IVPB ONE (19:14)
[2023-03-12 20:39] LABS: POTASSIUM 3.6 mmol/L (3.5-5.1)
[2023-03-12 20:43] LABS: ALBUMIN 2.3 g/dl (3.4-5.0); BLOOD UREA NITROGEN 8.9 mg/dL (7-18); CALCIUM 7.9 mg/dL (8.5-10.1)
[2023-03-12 20:46] LABS: CREATININE 0.8 mg/dL (0.55-1.3)
[2023-03-12 20:48] LABS: BILIRUBIN,TOTAL 0.7 mg/dL (0.2-1); TOT PROT 5.2 g/dl (6.4-8.2)
[2023-03-13] MEDS ORDERED: BISACODYL 5 MG TABLET.DR (FP) PO PRN (03:27)
[2023-03-13] MEDS ORDERED: MAGNESIUM SULF 50% (8.12 MEQ/2 ML-1 GM VIAL) IVPB ONE (03:37)
[2023-03-13] MEDS: LACTATED RINGERS SOLUTION 1,000 ML IV SCH (03:44)
[2023-03-13] MEDS: ACETAMINOPHEN 325 MG TABLET (FP) PO PRN (03:50)
[2023-03-13] MEDS ORDERED: MAGNESIUM SULFATE IN WATER 2 GM/50 ML IVPB IVPB ONE (04:39)
[2023-03-13] MEDS: SODIUM CHLORIDE 0.9% 500 ML INFUS.BAG IV SCH (04:43)
[2023-03-13 06:01] LABS: BASO % 1.1 % (0-2.0); EOS % 2.7 % (0-4.5); HEMATOCRIT 34.6 % (35.4-49); HEMOGLOBIN 11.7 GM/dL (11.7-16.9); LYMPH % 10.1 % (8-40); MCH 34.2 pg (25.7-33.7); MCHC 33.7 g/dl (32.0-35.9); MEAN CELL VOLUME 101.4 fl (80-96); MEAN PLT VOLUME 8.5 fl (7.5-11.1); MONO % 15.7 % (3.8-10.2); NEUT % 70.4 % (42.8-82.8); PLATELET COUNT 337 10^3/uL (134-434); RBC 3.41 M/mm3 (4.00-5.60); RDW 13.9 % (11.9-15.9); WHITE BLOOD COUNT 9.8 K/mm3 (4.0-10.0)
[2023-03-13 06:16] LABS: POTASSIUM 3.1 mmol/L (3.5-5.1)
[2023-03-13 06:21] LABS: CALCIUM 7.5 mg/dL (8.5-10.1)
[2023-03-13 06:22] LABS: ALBUMIN 2.1 g/dl (3.4-5.0); BLOOD UREA NITROGEN 7.3 mg/dL (7-18); MAGNESIUM 2.3 mg/dL (1.8-2.4)
[2023-03-13 06:25] LABS: CREATININE 0.7 mg/dL (0.55-1.3)
[2023-03-13 06:26] LABS: BILIRUBIN,TOTAL 0.6 mg/dL (0.2-1); TOT PROT 4.8 g/dl (6.4-8.2)
[2023-03-13] MEDS ORDERED: SIMETHICONE 80 MG TAB.CHEW (FP) ONE (07:21)
[2023-03-13] MEDS ORDERED: RANOLAZINE E.R. 500 MG TABLET (FP) ONE (07:21)
[2023-03-13] MEDS: SIMETHICONE 80 MG TAB.CHEW (FP) PO SCH ×4 (07:40→23:47)
[2023-03-13] MEDS ORDERED: PANTOPRAZOLE 40 MG TABLET PO ONE (09:28)
[2023-03-13] MEDS ORDERED: TAMSULOSIN HCL 0.4 MG CAP ONE (09:29)
[2023-03-13] MEDS ORDERED: LISINOPRIL 20 MG TABLET ONE (09:29)
[2023-03-13] MEDS: TAMSULOSIN HCL 0.4 MG CAP PO SCH (09:30)
[2023-03-13] MEDS: ENOXAPARIN NA (PORCINE) 40 MG/0.4 ML DISP.SYRIN SQ SCH (09:31)
[2023-03-13] MEDS: PANTOPRAZOLE 40 MG TABLET PO SCH ×2 (09:32→21:17)
[2023-03-13] MEDS: LISINOPRIL 20 MG TABLET PO SCH (09:32)
[2023-03-13] MEDS: RANOLAZINE E.R. 500 MG TABLET (FP) PO SCH ×2 (09:32→21:16)
[2023-03-13] MEDS: HYDROXYCHLOROQUINE SO4 200 MG TABLET (FP) PO SCH ×2 (09:32→23:43)
[2023-03-13] MEDS ORDERED: CLOPIDOGREL BISULFATE 75 MG TABLET (FP) PO SCH (10:00)
[2023-03-13 10:08] LABS: BASO % 1.1 % (0-2.0); EOS % 2.4 % (0-4.5); HEMATOCRIT 36.1 % (35.4-49); HEMOGLOBIN 12.5 GM/dL (11.7-16.9); LYMPH % 9.3 % (8-40); MCH 34.6 pg (25.7-33.7); MCHC 34.5 g/dl (32.0-35.9); MEAN CELL VOLUME 100.3 fl (80-96); MEAN PLT VOLUME 7.8 fl (7.5-11.1); MONO % 15.2 % (3.8-10.2); PLATELET COUNT 348 10^3/uL (134-434); RDW 13.8 % (11.9-15.9); WHITE BLOOD COUNT 9.7 K/mm3 (4.0-10.0)
[2023-03-13] MEDS: predniSONE 1 MG TABLET (FP) PO SCH (11:23)
[2023-03-13] MEDS ORDERED: POTASSIUM CHLORIDE TABS 20 MEQ TABLET.ER (FP) PO ONE ×3 (12:34→22:00)
[2023-03-13] MEDS: amLODIPine BESYLATE 5 MG TABLET (FP) PO SCH (21:17)
[2023-03-13] MEDS: ATORVASTATIN CA 40 MG TABLET (FP) PO SCH (21:17)
[2023-03-13] MEDS: LEFLUNOMIDE 10 MG TABLET PO SCH (23:43)
[2023-03-14] MEDS: LACTATED RINGERS SOLUTION 1,000 ML IV SCH (03:00)
[2023-03-14] MEDS: SODIUM CHLORIDE 0.9% 500 ML INFUS.BAG IV SCH (04:00)
[2023-03-14] MEDS: SIMETHICONE 80 MG TAB.CHEW (FP) PO SCH ×3 (07:08→17:49)
[2023-03-14] MEDS: TAMSULOSIN HCL 0.4 MG CAP PO SCH (07:49)
[2023-03-14 08:02] LABS: CHLORIDE 109 mmol/L (98-107); POTASSIUM 3.9 mmol/L (3.5-5.1); SODIUM 142 mmol/L (136-145)
[2023-03-14 08:05] LABS: ALBUMIN 2.1 g/dl (3.4-5.0); ANION GAP 7 MMOL/L (8-16); CO2 26 mmol/L (21-32); GLUCOSE,RANDOM 88 mg/dL (74-106)
[2023-03-14 08:08] LABS: CREATININE 0.7 mg/dL (0.55-1.3); SGOT/AST 17 U/L (15-37); SGPT/ALT 22 U/L (13-61)
[2023-03-14 08:09] LABS: BILIRUBIN,TOTAL 0.6 mg/dL (0.2-1); TOT PROT 4.8 g/dl (6.4-8.2)
[2023-03-14 08:11] LABS: ALK PHOS 125 U/L (45-117)
[2023-03-14 08:15] LABS: HEMATOCRIT 35.1 % (35.4-49); MCH 34.7 pg (25.7-33.7); MCHC 34.1 g/dl (32.0-35.9); MEAN CELL VOLUME 101.8 fl (80-96); MEAN PLT VOLUME 8.5 fl (7.5-11.1); PLATELET COUNT 381 10^3/uL (134-434); RBC 3.45 M/mm3 (4.00-5.60); RDW 13.6 % (11.9-15.9)
[2023-03-14 08:16] LABS: BLOOD UREA NITROGEN 2.5 mg/dL (7-18)
[2023-03-14] MEDS: ENOXAPARIN NA (PORCINE) 40 MG/0.4 ML DISP.SYRIN SQ SCH (10:36)
[2023-03-14] MEDS: HYDROXYCHLOROQUINE SO4 200 MG TABLET (FP) PO SCH ×2 (10:37→21:37)
[2023-03-14] MEDS: RANOLAZINE E.R. 500 MG TABLET (FP) PO SCH ×2 (10:37→21:37)
[2023-03-14] MEDS: LISINOPRIL 20 MG TABLET PO SCH (10:37)
[2023-03-14] MEDS: PANTOPRAZOLE 40 MG TABLET PO SCH ×2 (10:37→21:37)
[2023-03-14] MEDS: predniSONE 1 MG TABLET (FP) PO SCH (10:38)
[2023-03-14] MEDS ORDERED: INSULIN (NOVOLOG) ASPART 100 UNITS/ML 10ML VIAL ONE (17:44)
[2023-03-14] MEDS: ACETAMINOPHEN 325 MG TABLET (FP) PO PRN (17:48)
[2023-03-14 19:47] VITALS: BMI 30.8
[2023-03-14] MEDS: LEFLUNOMIDE 10 MG TABLET PO SCH (21:37)
[2023-03-14] MEDS: amLODIPine BESYLATE 5 MG TABLET (FP) PO SCH (21:37)
[2023-03-14] MEDS: ATORVASTATIN CA 40 MG TABLET (FP) PO SCH (21:37)
[2023-03-15] MEDS: SIMETHICONE 80 MG TAB.CHEW (FP) PO SCH ×4 (01:24→18:00)
[2023-03-15] MEDS: LACTATED RINGERS SOLUTION 1,000 ML IV SCH (04:24)
[2023-03-15] MEDS: SODIUM CHLORIDE 0.9% 500 ML INFUS.BAG IV SCH (04:37)
[2023-03-15 07:43] LABS: BASO % 1.3 % (0-2.0); EOS % 4.3 % (0-4.5); HEMATOCRIT 37.1 % (35.4-49); HEMOGLOBIN 12.7 GM/dL (11.7-16.9); LYMPH % 14.8 % (8-40); MCH 34.5 pg (25.7-33.7); MCHC 34.2 g/dl (32.0-35.9); MEAN PLT VOLUME 8.3 fl (7.5-11.1); MONO % 15.9 % (3.8-10.2); NEUT % 63.7 % (42.8-82.8); PLATELET COUNT 415 10^3/uL (134-434); RBC 3.68 M/mm3 (4.00-5.60); RDW 13.9 % (11.9-15.9); WHITE BLOOD COUNT 8.1 K/mm3 (4.0-10.0)
[2023-03-15 08:01] LABS: CHLORIDE 107 mmol/L (98-107); POTASSIUM 3.8 mmol/L (3.5-5.1); SODIUM 143 mmol/L (136-145)
[2023-03-15 08:10] LABS: ALBUMIN 2.2 g/dl (3.4-5.0); BILIRUBIN,TOTAL 0.6 mg/dL (0.2-1); CALCIUM 8.4 mg/dL (8.5-10.1); TOT PROT 4.9 g/dl (6.4-8.2)
[2023-03-15 08:11] LABS: ANION GAP 8 MMOL/L (8-16); CO2 28 mmol/L (21-32); MAGNESIUM 1.3 mg/dL (1.8-2.4)
[2023-03-15 08:12] LABS: ALK PHOS 128 U/L (45-117)
[2023-03-15 08:14] LABS: CREATININE 0.7 mg/dL (0.55-1.3); SGPT/ALT 21 U/L (13-61)
[2023-03-15 08:18] LABS: SGOT/AST 19 U/L (15-37)
[2023-03-15 08:21] LABS: BLOOD UREA NITROGEN 2.9 mg/dL (7-18); GLUCOSE,RANDOM 94 mg/dL (74-106)
[2023-03-15] MEDS: TAMSULOSIN HCL 0.4 MG CAP PO SCH (08:37)
[2023-03-15] MEDS: ENOXAPARIN NA (PORCINE) 40 MG/0.4 ML DISP.SYRIN SQ SCH (09:34)
[2023-03-15] MEDS: predniSONE 1 MG TABLET (FP) PO SCH (09:34)
[2023-03-15] MEDS: PANTOPRAZOLE 40 MG TABLET PO SCH ×2 (09:35→22:27)
[2023-03-15] MEDS: LISINOPRIL 20 MG TABLET PO SCH (09:35)
[2023-03-15] MEDS: RANOLAZINE E.R. 500 MG TABLET (FP) PO SCH ×2 (09:36→22:27)
[2023-03-15] MEDS: HYDROXYCHLOROQUINE SO4 200 MG TABLET (FP) PO SCH (11:21)
[2023-03-15] MEDS: ALBUTEROL SO4 0.083% IH SOL 2.5 MG/3 ML VIAL.NEB. NEB PRN (13:46)
[2023-03-15] MEDS: ATORVASTATIN CA 40 MG TABLET (FP) PO SCH (22:27)
[2023-03-15] MEDS: amLODIPine BESYLATE 5 MG TABLET (FP) PO SCH (22:27)
[2023-03-15] MEDS: LEFLUNOMIDE 10 MG TABLET PO SCH (22:28)
[2023-03-16] MEDS: ALBUTEROL SO4 0.083% IH SOL 2.5 MG/3 ML VIAL.NEB. NEB PRN ×2 (00:18→11:08)
[2023-03-16] MEDS: SIMETHICONE 80 MG TAB.CHEW (FP) PO SCH ×5 (00:36→18:17)
[2023-03-16] MEDS: HYDROXYCHLOROQUINE SO4 200 MG TABLET (FP) PO SCH ×2 (00:37→10:00)
[2023-03-16] MEDS: LACTATED RINGERS SOLUTION 1,000 ML IV SCH (03:59)
[2023-03-16] MEDS: SODIUM CHLORIDE 0.9% 500 ML INFUS.BAG IV SCH (04:35)
[2023-03-16] MEDS: ENOXAPARIN NA (PORCINE) 40 MG/0.4 ML DISP.SYRIN SQ SCH (09:59)
[2023-03-16] MEDS: TAMSULOSIN HCL 0.4 MG CAP PO SCH (09:59)
[2023-03-16] MEDS: predniSONE 1 MG TABLET (FP) PO SCH (09:59)
[2023-03-16] MEDS: RANOLAZINE E.R. 500 MG TABLET (FP) PO SCH (09:59)
[2023-03-16] MEDS: LISINOPRIL 20 MG TABLET PO SCH (10:00)
[2023-03-16] MEDS: PANTOPRAZOLE 40 MG TABLET PO SCH (10:00)
[2023-03-16] MEDS ORDERED: INSULIN (NOVOLOG) ASPART 100 UNITS/ML 10ML VIAL ONE (14:26)
[2023-03-16 14:32] VITALS: BP 154/75; PULSE 91; RESP 20; TEMP 99.2
== END 2023-03-16 18:41 | disposition home or self-care (01) | DRG 392 ==
LOC: JER 16:01 → JERBED 23:29 → OBSVTOIN 03-13 03:27 → JERBED 03-13 13:42 → J7W 03-13 14:12
PROVIDERS: ADMIT Internal Medicine; ATTEND Internal Medicine
DX: K52.9 Noninfective gastroenteritis and colitis, unspecified (principal); I25.10 Atherosclerotic heart disease of native coronary artery without angina pectoris; K21.9 Gastro-esophageal reflux disease without esophagitis; I10 Essential (primary) hypertension; M06.9 Rheumatoid arthritis, unspecified; E78.5 Hyperlipidemia, unspecified; J44.9 Chronic obstructive pulmonary disease, unspecified; E83.42 Hypomagnesemia; F41.9 Anxiety disorder, unspecified; E87.6 Hypokalemia; E66.9 Obesity, unspecified; Z68.30 Body mass index [BMI] 30.0-30.9, adult; R91.1 Solitary pulmonary nodule
CPT/HCPCS: 0241U-QW; 36415; 74177-TC; 80053; 82962; 83690; 83735; 83993; 84100; 84484; 85025; 85027; 86705; 86707; 87045; 87046; 87116; 87186; 87205; 87206; 87209; 87324; 87350; 87449; 87517; 87522; 93005; 93010; 94640; 99285-25; G0378; Q9967

== ENCOUNTER 2024-08-07 16:27 | Emergency (ER) | payer MEDICARE, OTHER ==
[2024-08-07 16:33] VITALS: RESP 18; TEMP 97.7; BMI 28.8
[2024-08-07 17:41] LABS: BASO % 0.5 % (0-2.0); EOS % 0.9 % (0-4.5); HEMATOCRIT 39.3 % (35.4-49); HEMOGLOBIN 13.5 GM/dL (11.7-16.9); MCH 35.9 pg (25.7-33.7); MCHC 34.5 g/dl (32.0-35.9); MEAN CELL VOLUME 104.2 fl (80-96); MONO % 9.5 % (3.8-10.2); NEUT % 80.1 % (42.8-82.8); PLATELET COUNT 326 10^3/uL (134-434); RBC 3.77 M/mm3 (4.00-5.60); RDW 14.9 % (11.9-15.9); WHITE BLOOD COUNT 12.8 K/mm3 (4.0-10.0)
[2024-08-07 17:58] LABS: POTASSIUM 4.1 mmol/L (3.5-5.1)
[2024-08-07 18:01] LABS: CALCIUM 9.7 mg/dL (8.5-10.1)
[2024-08-07 18:02] LABS: ALBUMIN 3.4 g/dl (3.4-5.0); BLOOD UREA NITROGEN 27.5 mg/dL (7-18); MAGNESIUM 1.3 mg/dL (1.8-2.4)
[2024-08-07 18:05] LABS: CREATININE 1.1 mg/dL (0.55-1.3)
[2024-08-07 18:07] LABS: BILIRUBIN,TOTAL 0.6 mg/dL (0.2-1); TOT PROT 6.6 g/dl (6.4-8.2)
[2024-08-07] MEDS ORDERED: MAGNESIUM SULFATE IN WATER 2 GM/50 ML IVPB IVPB ONE (18:45)
[2024-08-07] MEDS: MAGNESIUM SULF 50% (8.12 MEQ/2 ML-1 GM VIAL) IVPB ONE (18:53)
[2024-08-07 21:17] VITALS: BP 134/73; PULSE 71
[2024-08-07] MEDS: CEFUROXIME AXETIL 500 MG TABLET PO ONE (22:14)
[2024-08-07] MEDS: AZITHROMYCIN 500 MG TABLET PO ONE (22:16)
[2024-08-07] MEDS ORDERED: AZITHROMYCIN 500 MG TABLET ONE (22:17)
== END 2024-08-07 22:15 | disposition left against medical advice (07) ==
LOC: JER 16:27
PROC: 3E033GC Introduction of Other Therapeutic Substance into Peripheral Vein, Percutaneous Approach (ICD-10-PCS; principal; 2024-08-07)
DX: J18.9 Pneumonia, unspecified organism (principal); R05.9 Cough, unspecified; Z20.822 Contact with and (suspected) exposure to COVID-19
CPT/HCPCS: 0241U-QW; 36415; 71045-TC-FY; 71260-TC; 80053; 83735; 84484; 85025; 93005; 93010; 99285-25; Q9967

== ENCOUNTER 2024-08-29 15:20 | Inpatient (IN) | payer MEDICARE, OTHER ==
[2024-08-29 15:58] VITALS: BMI 27.3
[2024-08-29] MEDS: ALBUTEROL SO4 2.5/IPRATROPIUM 0.5 INH SOL 3 ML VIAL.NEB. NEB SCH (16:00)
[2024-08-29] MEDS ORDERED: ALBUTEROL SO4 2.5/IPRATROPIUM 0.5 INH SOL 3 ML VIAL.NEB. NEB ONE (16:02)
[2024-08-29] MEDS ORDERED: methylPREDNISolone NA SUCC 125 MG/2 ML VIAL ONE (16:03)
[2024-08-29] MEDS: methylPREDNISolone NA SUCC 125 MG/2 ML VIAL IVPUSH ONE (16:08)
[2024-08-29 16:47] LABS: VENOUS BASE EXCESS -8.3 mmol/L (-2-2); VENOUS PCO2 51.8 mmHg (38-52); VENOUS PH 7.208 (7.310-7.410)
[2024-08-29 16:50] LABS: BASO % 0.5 % (0-2.0); EOS % 1.4 % (0-4.5); HEMATOCRIT 40.7 % (35.4-49); HEMOGLOBIN 13.8 GM/dL (11.7-16.9); MCH 34.6 pg (25.7-33.7); MCHC 33.9 g/dl (32.0-35.9); MEAN CELL VOLUME 102.3 fl (80-96); MEAN PLT VOLUME 8.2 fl (7.5-11.1); MONO % 11.6 % (3.8-10.2); NEUT % 67.5 % (42.8-82.8); PLATELET COUNT 334 10^3/uL (134-434); RBC 3.98 M/mm3 (4.00-5.60); RDW 14.6 % (11.9-15.9)
[2024-08-29 16:57] LABS: INR 1.15 (0.83-1.09); PROTHROMBIN TIME (PATIENT) 12.7 SEC (9.7-13.0)
[2024-08-29 17:00] LABS: ACTIVATED PTT 38.6 SECONDS (25.2-36.5)
[2024-08-29 17:14] LABS: POTASSIUM 5.1 mmol/L (3.5-5.1)
[2024-08-29 17:17] LABS: ALBUMIN 3.2 g/dl (3.4-5.0); BLOOD UREA NITROGEN 41.8 mg/dL (7-18)
[2024-08-29 17:20] LABS: CREATININE 3.4 mg/dL (0.55-1.3)
[2024-08-29 17:21] LABS: BILIRUBIN,TOTAL 0.5 mg/dL (0.2-1); TOT PROT 6.4 g/dl (6.4-8.2)
[2024-08-29] MEDS: SODIUM CHLORIDE 0.9% 500 ML INFUS.BAG IV ONE ×3 (17:35→21:55)
[2024-08-29] MEDS ORDERED: ACETAMINOPHEN INJECTION 100 ML ONE (19:23)
[2024-08-29] MEDS: ACETAMINOPHEN 1000 MG/100 ML BAG IVPB ONE (19:27)
[2024-08-29 19:57] LABS: EPI CELLS 15 /uL (0-25.1); HYALINE CASTS 13 /uL (0-3.1); URINE APPEARANCE CLEAR; URINE BACTERIA 0 /uL (0-1359); URINE BILIRUBIN NEGATIVE (NEGATIVE); URINE COLOR YELLOW; URINE GLUCOSE (UA) NEGATIVE (NEGATIVE); URINE KETONE TRACE (NEGATIVE); URINE LEUK ESTERASE NEGATIVE (NEGATIVE); URINE NITRITE NEGATIVE (NEGATIVE); URINE PROTEIN 1+ (NEGATIVE); URINE RBC 44 /uL (0-23.9); URINE UROBILINOGEN 0.2 mg/dL (0.2-1.0); URINE WBC 15 /uL (0-25.8)
[2024-08-29] MEDS ORDERED: OSELTAMIVIR PHOSPHATE 30 MG CAPSULE ONE (23:16)
[2024-08-29] MEDS: OSELTAMIVIR PHOSPHATE 30 MG CAPSULE PO SCH (23:18)
[2024-08-30] MEDS ORDERED: LORazepam 1 MG TABLET ONE ×2 (01:35→22:36)
[2024-08-30] MEDS ORDERED: ALBUTEROL SO4 2.5/IPRATROPIUM 0.5 INH SOL 3 ML VIAL.NEB. NEB ONE ×3 (01:35→12:15)
[2024-08-30] MEDS ORDERED: methylPREDNISolone NA SUCC 40 MG/1 ML VIAL ONE ×4 (01:35→15:12)
[2024-08-30] MEDS: ALBUTEROL SO4 2.5/IPRATROPIUM 0.5 INH SOL 3 ML VIAL.NEB. NEB SCH (01:47)
[2024-08-30] MEDS: LORazepam 1 MG TABLET PO PRN ×2 (01:47→22:43)
[2024-08-30] MEDS ORDERED: SIMETHICONE 80 MG TAB.CHEW (FP) PO PRN (03:04)
[2024-08-30] MEDS ORDERED: PATIENT'S OWN MEDICATION (NON-FORMULARY) (Ipratropium/Albuterol Sulfate 1 PUFF Inhaler) IH PRN (03:04)
[2024-08-30] MEDS ORDERED: ACETAMINOPHEN 325 MG TABLET (FP) PO PRN (03:04)
[2024-08-30] MEDS: methylPREDNISolone NA SUCC 40 MG/1 ML VIAL IVPUSH SCH (03:26)
[2024-08-30] MEDS: SODIUM CHLORIDE 1,000 ML IV SCH (04:11)
[2024-08-30] MEDS: HEPARIN NA (PORCINE) 5,000 UNITS/ML 1ML VIAL SQ SCH (06:08)
[2024-08-30] MEDS ORDERED: HEPARIN NA (PORCINE) 5,000 UNITS/ML 1ML VIAL ONE ×3 (06:49→22:37)
[2024-08-30 06:53] VITALS: TEMP 98.6
[2024-08-30 07:40] LABS: BASO % 0.2 % (0-2.0); EOS % 0.1 % (0-4.5); HEMATOCRIT 34.8 % (35.4-49); HEMOGLOBIN 12.1 GM/dL (11.7-16.9); LYMPH % 10.3 % (8-40); MCH 35.5 pg (25.7-33.7); MCHC 34.9 g/dl (32.0-35.9); MEAN CELL VOLUME 101.8 fl (80-96); MEAN PLT VOLUME 8.1 fl (7.5-11.1); MONO % 1.6 % (3.8-10.2); NEUT % 87.8 % (42.8-82.8); PLATELET COUNT 297 10^3/uL (134-434); RBC 3.42 M/mm3 (4.00-5.60); RDW 14.6 % (11.9-15.9); WHITE BLOOD COUNT 4.2 K/mm3 (4.0-10.0)
[2024-08-30 08:00] LABS: POTASSIUM 4.2 mmol/L (3.5-5.1)
[2024-08-30 08:14] LABS: CALCIUM 7.8 mg/dL (8.5-10.1)
[2024-08-30 08:15] LABS: ALBUMIN 2.8 g/dl (3.4-5.0); BLOOD UREA NITROGEN 33.2 mg/dL (7-18); MAGNESIUM 1.1 mg/dL (1.8-2.4)
[2024-08-30 08:17] LABS: CREATININE 1.4 mg/dL (0.55-1.3)
[2024-08-30 08:18] LABS: PHOSPHOROUS 3.2 mg/dL (2.5-4.9)
[2024-08-30 08:19] LABS: BILIRUBIN,TOTAL 0.3 mg/dL (0.2-1); TOT PROT 5.5 g/dl (6.4-8.2)
[2024-08-30] MEDS ORDERED: PANTOPRAZOLE 40 MG TABLET PO ONE ×2 (10:38→22:36)
[2024-08-30] MEDS ORDERED: FOLIC ACID 1 MG TABLET (FP) ONE (10:38)
[2024-08-30] MEDS ORDERED: OSELTAMIVIR PHOSPHATE 75 MG CAPSULE ONE (10:39)
[2024-08-30] MEDS ORDERED: CLOPIDOGREL BISULFATE 75 MG TABLET (FP) ONE (10:39)
[2024-08-30] MEDS: PANTOPRAZOLE 40 MG TABLET PO SCH (10:43)
[2024-08-30] MEDS: CLOPIDOGREL BISULFATE 75 MG TABLET (FP) PO SCH (10:43)
[2024-08-30] MEDS: FOLIC ACID 1 MG TABLET (FP) PO SCH (10:43)
[2024-08-30] MEDS: predniSONE 2.5 MG TABLET PO SCH (10:43)
[2024-08-30] MEDS ORDERED: OSELTAMIVIR PHOSPHATE 30 MG CAPSULE ONE (10:44)
[2024-08-30] MEDS: FLUTICASONE/UMECLIDIN/VILANTER(200-62.5-25 TRELEGY ELLIPTA) INAHLER IH SCH (10:50)
[2024-08-30] MEDS ORDERED: MAGNESIUM 1GM/D5W - 1 GM/100 ML IVPB IVPB ONE (12:15)
[2024-08-30] MEDS: MAGNESIUM 1GM/D5W 100ML - 100 ML IVPB IVPB ONE (13:13)
[2024-08-30] MEDS ORDERED: ALBUTEROL SO4 0.083% IH SOL 2.5 MG/3 ML VIAL.NEB. NEB ONE (15:12)
[2024-08-30] MEDS: ALBUTEROL SO4 0.083% IH SOL 2.5 MG/3 ML VIAL.NEB. NEB SCH (16:26)
[2024-08-30] MEDS ORDERED: ATORVASTATIN CA 40 MG TABLET (FP) ONE (22:36)
[2024-08-30] MEDS: ATORVASTATIN CA 40 MG TABLET (FP) PO SCH (22:43)
[2024-08-31] MEDS ORDERED: HEPARIN NA (PORCINE) 5,000 UNITS/ML 1ML VIAL ONE (03:39)
[2024-08-31 08:21] LABS: POTASSIUM 4.3 mmol/L (3.5-5.1)
[2024-08-31 08:28] LABS: CALCIUM 8.8 mg/dL (8.5-10.1)
[2024-08-31 08:30] LABS: ALBUMIN 2.9 g/dl (3.4-5.0); BLOOD UREA NITROGEN 24.4 mg/dL (7-18)
[2024-08-31 08:31] LABS: CREATININE 0.8 mg/dL (0.55-1.3)
[2024-08-31 08:32] LABS: BILIRUBIN,TOTAL 0.4 mg/dL (0.2-1)
[2024-08-31 08:34] LABS: TOT PROT 5.6 g/dl (6.4-8.2)
[2024-08-31] MEDS ORDERED: ALBUTEROL SO4 0.083% IH SOL 2.5 MG/3 ML VIAL.NEB. NEB ONE ×2 (08:35→12:16)
[2024-08-31 09:04] VITALS: BP 162/80; RESP 22
[2024-08-31] MEDS ORDERED: CLOPIDOGREL BISULFATE 75 MG TABLET (FP) ONE (10:08)
[2024-08-31] MEDS ORDERED: PANTOPRAZOLE 40 MG TABLET PO ONE (10:08)
[2024-08-31] MEDS: predniSONE 20 MG TABLET (UD) PO SCH (10:19)
[2024-08-31 14:56] VITALS: PULSE 84
== END 2024-08-31 15:08 | disposition home or self-care (01) | DRG 194 ==
LOC: JER 15:20 → JERBED 21:46 → OBSVTOIN 08-30 11:02
PROVIDERS: ADMIT Internal Medicine
DX: J10.1 Influenza due to other identified influenza virus with other respiratory manifestations (principal); E87.20 Acidosis, unspecified; J44.1 Chronic obstructive pulmonary disease with (acute) exacerbation; N17.9 Acute kidney failure, unspecified; I25.10 Atherosclerotic heart disease of native coronary artery without angina pectoris; J44.9 Chronic obstructive pulmonary disease, unspecified; K21.9 Gastro-esophageal reflux disease without esophagitis; M06.9 Rheumatoid arthritis, unspecified; R91.8 Other nonspecific abnormal finding of lung field
CPT/HCPCS: 0241U-QW; 36415; 71045-TC-FY; 71250-TC; 76775-TC; 80053; 81003; 82570; 82803; 83605; 83735; 84100; 84300; 84484; 85025; 85610; 85730; 86850; 86900; 86901; 87040; 87070; 87086; 87205; 87899; 93005; 93010; 94660; 94761; 99285-25; G0378; J0131; J1644